=== PATIENT | male | born 1980 | race Caucasian/White ===

== ENCOUNTER 2022-12-24 08:13 | Emergency (ER) | payer BC, SELFPAY ==
[2022-12-24 08:20] VITALS: BP 127/92; PULSE 107; RESP 20; TEMP 36.8; O2SAT 100
--- NOTE | 2022-12-24 08:28 | ED.URI ---
HPI - URI/Sore Throat General Chief Complaint: Upper Respiratory Infection Stated Complaint: Sinus Congestion/Ear Pain/Sore Throat Source: patient and RN notes reviewed History of Present Illness HPI Narrative: 42-year-old male presents to urgent care with complaints of a sore throat, congestion, bilateral neck pain, and bilateral ear pain. Patient states he has been having these symptoms since last . Patient states he thought his symptoms were getting better yesterday but then woke up this morning with worsening symptoms. Patient states he is unable to eat or drink anything with ease due to the feeling his throat is swollen. Pt states every time he lies down, it feels like his throat constricts and closes up. Denies any fever, chills, SOB, chest pain, or vomiting. Pt has taken Aleve and allergy medicine at home. Related Data Home Medications Medication Instructions Recorded Confirmed adalimumab 40 mg/0.8 mL 40 mg subcut ONCE 12/24/22 12/24/22 subcutaneous syringe kit (Humira) sertraline 50 mg tablet 5 mg PO DAILY 12/24/22 12/24/22 Allergies Allergy/AdvReac Type Severity Reaction Status Date / Time No Known Allergies Allergy Unknown Verified 12/24/22 08:32 Review of Systems Review of Systems: Pertinent positives and pertinent negatives per HPI. PMFSH Comments At the time of my signature, I reviewed and agree with the nursing past medical, surgical, social, and family history. There is no relevant family history pertinent to the patient complaint. Exam Narrative: GENERAL: This is a well-nourished, well-developed patient, in no apparent distress. HEAD: normocephalic, atraumatic. EYES: Sclera clear/white. Vision is grossly intact. EARS: External ears normal, auditory canals clear and without drainage, TMs normal without perforation. Hearing grossly intact. NOSE: External nose normal with no obvious nasal discharge, nares without redness, no rhinorrhea. THROAT: Mucous membranes moist, posterior pharynx noted to have white lesion to right side. Left tonsil noted to be 3+. NECK: Neck supple, non-tender without lymphadenopathy, masses or thyromegaly. CARDIOVASCULAR: Regular rate and rhythm without murmurs, gallops, or rubs. RESPIRATORY: Clear to auscultation. Breath sounds equal bilaterally. No wheezes, rales, or rhonchi. SKIN: warm, intact with no suspicious lesions or rash, good texture and turgor. NEURO: awake, alert, and oriented to person, place and time. There were no obvious focal neurologic abnormalities. EXTREMITIES: No clubbing, cyanosis, or edema. No joint tenderness, effusion, or edema noted. Course Course Level of Care: Express Care Visit Vital Signs Vital signs: Vital Signs Temperature 98.3 F 12/24/22 08:20 Pulse Rate 107 H 12/24/22 08:20 Respiratory Rate 20 12/24/22 08:20 Blood Pressure 127/92 H 12/24/22 08:20 Pulse Oximetry 100 12/24/22 08:20 Oxygen Delivery Room Air 12/24/22 08:20 Temperature 98.3 F 12/24/22 08:20 Pulse Rate 107 H 12/24/22 08:20 Respiratory Rate 20 12/24/22 08:20 Blood Pressure 127/92 H 12/24/22 08:20 Pulse Oximetry 100 12/24/22 08:20 Oxygen Delivery Room Air 12/24/22 08:20 Reviewed MDM - URI/Sore Throat MDM Narrative Medical decision making narrative: Due to pt's dysphagia and swelling to left tonsil, suspicious for peritonsillar abscess, pt is being transferred to ED for further evaluation. Pt agrees to plan of care and is able to drive himself now. No trismus, drooling. Pt is stable. VSS. NAD. Report given to Christy charge machine operator, who accepts pt for Dr. De La Cruz at [facility] ED. PT was instructed to stay NPO until further evaluated. Differential Diagnosis Differential diagnosis: Likely upper respiratory infection, viral infection and other (peritonsillar abscess) Lab Data Attestation: I reviewed the patient's lab results. Labs: Strep Screen Presumptive Negative
== END 2022-12-24 08:48 | disposition short-term general hospital (02) ==
PROVIDERS: Emergency Provider Nurse Practitioner Family
DX: J02.9 Acute pharyngitis, unspecified (principal); R13.10 Dysphagia, unspecified; L40.50 Arthropathic psoriasis, unspecified; M06.9 Rheumatoid arthritis, unspecified; F41.9 Anxiety disorder, unspecified; F32.A Depression, unspecified; F43.10 Post-traumatic stress disorder, unspecified
CPT/HCPCS: 87081; 87880; 99203; G0463

== ENCOUNTER 2025-01-20 08:15 | Emergency (ER) | payer OTHER, SELFPAY ==
--- OUTSIDE RECORDS SUMMARY | 2025-01-20 08:19 | XMS_ITS | Clinical Summary ---
Author Organization [facility] Address [address] [place] [address] Phone Care Team Providers Care Floor Winder Name Role Phone Unavailable Primary Care Provider Unavailabl e Allergies No known active allergies Medications HYDROcodone-zahraa taminophen (NORCO) 5-325 MG TabletIndicatio ns:Laceration of left index finger Take 1 Tablet by mouth every 8 hours as needed for Moderate or more severe pain. 10 Tablet 2 Active Additional Information Patient not taking.Reported on 08/30/2021 methotrexate 2.5 MG Tablet TAKE FOUR TABLETS BY MOUTH EVERY WEEK 1 Active Etanercept 50 MG/ML Solution Auto-injector by Subcutaneous route. Active busPIRone (BUSPAR) 10 MG Tablet Take 1 Tablet by mouth 3 times daily. 270 Tablet 2 Active sertraline (ZOLOFT) 50 MG Tablet TAKE 1 TABLET BY MOUTH EVERY DAY 90 Tablet 1 2 Active Active Problems No known active problems Immunizations Immunization Administration Dates Next Due Influenza Vaccine,unspecified Formulation 2004 Pneumococcal Vaccine - 13 Valent 10/12/2018 TDAP Vaccine 08/19/2021 Tetanus Toxoid, Unspecified Formulation 06/30/19 00 Social History Tobacco Use Types Packs/Day Years Used Date Smoking Tobacco: Some Days Smokeless Tobacco: Never Tobacco Cessation:Ready to Q uit: No; Counseling Given: No Sex and Gender Information Value Date Recorded Sex Assigned at Not on file Legal Sex Male 12:23 PM TELEGRAPH OFFICE ROUTE AIDE Gender Identity Not on file Sexual Orientation Not on file Last Filed Vital Signs Vital Sign Reading Time Taken Comments Blood Pressure 134/82 08/30/2021 9:23 AM TELEGRAPH OFFICE ROUTE AIDE Pulse 87 08/30/2021 9:23 AM TELEGRAPH OFFICE ROUTE AIDE Temperature 36.5 C (97.7 F) 08/30/2021 9:23 AM TELEGRAPH OFFICE ROUTE AIDE Respiratory Rate 20 08/30/2021 9:23 AM TELEGRAPH OFFICE ROUTE AIDE Oxygen Saturation 98% 08/30/2021 9:23 AM TELEGRAPH OFFICE ROUTE AIDE Inhaled Oxygen Concentration - - Weight 101.2 kg (223 lb) 08/30/2021 9:23 AM TELEGRAPH OFFICE ROUTE AIDE Height 177.8 cm (5' 10) 08/30/2021 9:23 AM TELEGRAPH OFFICE ROUTE AIDE Body Mass Index 32 08/30/2021 9:23 AM TELEGRAPH OFFICE ROUTE AIDE Plan of Treatment Health Maintenance Due Date Last Done Comments Hepatitis C Virus (HCV) Screening 1980 SARS-COV-2 Immunization (#1) 02/28/1985 Human Papillomavirus (HPV) Immunization (1 - Male 3-dose series) 02/28/1995 Hepatitis B Immunization (1 of 3 - 19+ 3-dose series) 02/28/1999 Influenza Immunization (#1) 2025 05/09/2005 Respiratory Syncytial Virus (RSV) Immunization (Adult) (1 - 1-dose 75+ series) 02/28/2055 Pneumococcal Immunization Combined Aged Out 2018 No longer eligible based on patient's age to complete this topic DTaP/Tdap/Td Immunization Discontinued 08/19/2021 Meningococcal Immunization (ACWY) Aged Out No longer eligible based on patient's age to complete this topic Rotavirus Immunization Aged Out No lo nger eligible based on patient's age to complete this topic Insurance [facility] SAVERS
--- OUTSIDE RECORDS SUMMARY | 2025-01-20 08:19 | XMS_ITS | Encounter Summary ---
Author Organization [facility] Address [address] [place] [address] Phone Care Team Providers Care Fire Management Technician Name Role Phone Steph Andrews APRN, JOHN Primary Care Provider Reason for Visit * Reason Comments Medication Refill Encounter Details Date Type Department Care Team (Late st Contact Info) Description [facility]20[facility] - Mary [address] [place] [address] Steph Andrews APRN, ORNAMENTAL IRONWORKING SUPERVISOR [address] [place] [address] Medication Refill Social History Tobacco Use Types Packs/Day Years Used Date Smoking Tobacco: Some Days Smokeless Tobacco: Never Sex and Gender Information Value Date Recorded Sex Assigned at Not on file Legal Sex Male 12:23 PM KITCHEN STEWARDESS Gender Identity Not on file Sexual Orientation Not on file documented as of this encounter Miscellaneous Notes * Telephone Encounter - Svetlana Mcnamara RN - 04/09/2022 7:40 AM CDT Medication failed the protocol, provider to review and approve the medication order if appropriate. Requested Prescriptions Pending Prescriptions Disp Refills sertraline (ZOLOFT) 50 MG Tablet [Pharmacy Med Name: SERTRALINE 50MG TABLETS] 90 Tablet 1 Sig: TAKE 1 TABLET BY MOUTH EVERY DAY SSRI (6 Month Refill Only) Protocol Failed - 04/08/2022 5:00 PM Failed - Visit with relevant provider in past 6 months or upcoming 90 days Recent Visits No visits were found meeting these conditions. Showing recent visits within past 182 days and meeting all other requirements Future Appointments No visits were found meeting these conditions. Showing future appointments within next 90 days and meeting all other requirements Failed - Has an encounter in the past 6 months with a depression, anxiety, adjustment disorder, OCD, or PTSD visit diagnosis Passed - Patient has established therapy with SSRI for at least 6 months documented in this encounter Plan of Treatment Not on file documented as of this encounter Visit Diagnoses Not on filedocumented in this encounter Care Teams Fire Management Technician Relationship Specialty Start Date End Date Steph Andrews, ARCHEOLOGIST CLASSICAL, ORNAMENTAL IRONWORKING SUPERVISOR [address] [place] [address] PCP - General Advanced Practice Nurse 08/30/21 documented as of this encounter
--- OUTSIDE RECORDS SUMMARY | 2025-01-20 08:19 | XMS_ITS | Clinical Summary ---
Author Organization [facility] Address [address] [place] [address] Care Team Providers Care Water Filterer Name Role Phone None, Provider MD Primary Care Provider Unavaila ble Allergies No known active allergies Medications metFORMIN (GLUCOPHAGE) 500 MG tablet Take 1 tablet (500 mg total) by mouth 2 (two) times daily with meals. 60 tablet 02/09/2024 Active Social History Tobacco Use Types Packs/Day Years Used Date Smoking Tobacco: Never Assessed Sex and Gender Information Value Date Recorded Sex Assigned at Not on file Legal Sex Male 4:51 PM CDT Gender Identity Not on file Sexual Orientation Not on file Last Filed Vital Signs Vital Sign Reading Time Taken Comments Blood Pressure 146/83 02/09/2024 7:30 PM CDT Pulse 87 02/09/2024 8:12 PM CDT Temperature 36.8 C (98.3 F) 02/09/2024 5:09 PM CDT Respiratory Rate 18 02/09/2024 5:09 PM CDT Oxygen Saturation 100% 02/09/2024 7:30 PM CDT Inhaled Oxygen Concentration - - Weight 102.5 kg (225 lb 15.5 oz) 02/09/2024 5:09 PM CDT Height 175.3 cm (5' 9) 02/09/2024 5:09 PM CDT Body Mass Index 33.37 02/09/2024 5:09 PM CDT Plan of Treatment Health Maintenance Due Date Last Done Comments Annual Physical 02/28/1983 Hepatitis C 02/28/1998 Hepatitis B Vaccines (1 of 3 - 19+ 3-dose series) 02/28/1999 HPV Vaccines (1 - 3-dose SCD M series) 02/28/2007 COVID-19 Vaccine (2023-2 5 season) 2024 DTaP, Tdap and Td Vaccines ( 2 - Td or Tdap) 08/19/2031 08/19/2021, 06/30/1999 Pneumococcal Vaccine: Pediatrics (0 to 5 Years) and At-Risk Patients (6 to 49 Years) Aged Out 10/12/2018 No longer eligible b ased on patient's age to complete this topic Meningococcal B Vaccine Aged Out No l onger eligible based on patient's age to complete this topic Meningococcal Vaccine Aged Out No jessy anna eligible based on patient's age to complete this topic RSV Immunizations Under 20 Months Aged Out No longer eligible b ased on patient's age to complete this topic Insurance [facility] Care Teams Water Filterer Relationship Specialty Start Date End Date None, Provider, PCP - General UNKNOWN PHYSICIAN SPECIALTY 02/09/24
--- OUTSIDE RECORDS SUMMARY | 2025-01-20 08:19 | XMS_ITS | Encounter Summary ---
Author Organization [facility] Address [address] [place] [address] Phone Care Team Providers Care Newspaper Delivery Driver Name Role Phone Steph Andrews APRN, JOHN Primary Care Provider Reason for Visit * Reason Comments Medication Refill Encounter Details Date Type Department Care Team (Late st Contact Info) Description 09/03/2022 [facility] - [address] [place] [id number] Steph Andrews APRN, MAPPER [address] [place] [address] Medication Refill Social History Tobacco Use Types Packs/Day Years Used Date Smoking Tobacco: Some Days Smokeless Tobacco: Never Sex and Gender Information Value Date Recorded Sex Assigned at Not on file Legal Sex Male 12:23 PM 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
--- OUTSIDE RECORDS SUMMARY | 2025-01-20 08:19 | XMS_ITS | Referral Summary ---
Author Organization [facility] Address [address] [place] [address] Care Team Providers Care Geothermal Field Technician Name Role Phone [facility], Randall Valverde Primary Care Pro vider Allergies No known active allergies Medications cyclobenzaprine (FLEXERIL) 10 mg tablet Take 1 tablet (10 mg total) by mouth 3 (three) times a day as needed for muscle spasms 12 tablet 01/03/2022 Active cetirizine (ZyrTEC) 10 mg tablet Take 1 tablet (10 mg total) by mouth daily 30 tablet 12/26/2022 Active adalimumab 40 mg/0.8 mL pen injector kit Inject 0.8 mL (40 mg total) under the skin every 14 (fourteen) days Active famotidine (PEPCID) 40 mg tabletIndicatio ns:Laryngeal spasm Take 1 tablet (40 mg total) by mouth nightly 90 tablet 3 01/06/2023 Active multivit,calc,m in/FA/K1/lycop (ONE-A-DAY MEN'S COMPLETE ORAL) Take by mouth daily Active ketorolac (TORADOL) 10 mg tablet Take 1 tablet (10 mg total) by mouth every 6 (six) hours as needed for pain 20 tablet 06/16/2024 Active cyclobenzaprine (FLEXERIL) 10 mg tablet Take 1 tablet (10 mg total) by mouth 2 (two) times a day as needed for muscle spasms 10 tablet 06/16/2024 Active Active Problems Problem Noted Date Diagnosed Date Laryngeal spasm 01/06/2023 Assessment & Plan (01/06/2023 11:26 AM CDT): 64 ounces of caffeine free and soda free fluid daily Mouth wash gargle and spits after meals and before bedtime Pepcid 40 mg at bedtime for at least 2 months Have Dental evaluation [facility] Laryngopharyngeal reflux discussed and Handout provided Chronic tonsillitis 01/06/2023 Assessment & Plan (01/06/2023 11:20 AM CDT): 64 ounces of caffeine free and soda free fluid daily Mouth wash gargle and spits after meals and before bedtime Pepcid 40 mg at bedtime for at least 2 months Have Dental evaluation [facility] Right tonsillar hemorrhage 01/06/2023 Assessment & Plan (01/06/2023 11:20 AM CDT): 64 ounces of caffeine free and soda free fluid daily Mouth wash gargle and spits after meals and before bedtime Pepcid 40 mg at bedtime for at least 2 months Have Dental evaluation [facility] Neck mass 01/06/2023 Assessment & Plan (01/06/2023 11:26 AM CDT): Excision of deep left supraclavicular neck mass Risks and complications: Anesthesia, bleeding, infection, benign versus malignant pathology, recurrence of lesion, injury to arteries, nerves and veins, scarring and need for further treatment Social History Tobacco Use Types Packs/Day Years Used Date Smoking Tobacco: Former Cigarettes Q uit: 12/23/2022 Smokeless Tobacco: Never Tobacco Cessation:Counseling Given: Not Answered Alcohol Use Standard Drinks/Week Comments Yes 0 (1 standard drink = 0.6 oz pur e alcohol) AUDIT-C Answer Date Recorded Q1: How often do you have a drink containing alc ohol? 2-4 times a month 01/16/2023 Q2: How many drinks containi ng alcohol do you have on a typical day when you are drinking? 5 or 6 01/16/2023 Frequency of Binge Drinking Not on file 12/29 Personal Safety Answer Date Recorded Have you ever been in or are you currently in a harmful physical or emotional relationship or is someone making you feel afraid or unsafe? Denies 06/16/2024 Sex and Gender Information Value Date Recorded Sex Assigned at Not on file Legal Sex Male 9:07 AM RETAIL MERCHANDISER Gender Identity Not on file Sexual Orientation Not on file Last Filed Vital Signs Vital Sign Reading Time Taken Comments Blood Pressure 116/74 06/16/2024 3:45 PM RETAIL MERCHANDISER Pulse 83 06/16/2024 3:45 PM RETAIL MERCHANDISER Temperature 37 C (98.6 F) 06/16/2024 12:51 PM RETAIL MERCHANDISER Respiratory Rate 18 06/16/2024 3:45 PM RETAIL MERCHANDISER Oxygen Saturation 96% 06/16/2024 3:45 PM RETAIL MERCHANDISER Inhaled Oxygen Concentration - - Weight 106.6 kg (235 lb 0.2 oz) 024 12:51 PM RETAIL MERCHANDISER Height 175.3 cm (5' 9) 06/16/2024 12:5 1 PM RETAIL MERCHANDISER Body Mass Index 34.71 06/16/2024 12:51 PM RETAIL MERCHANDISER Plan of Treatment Not on file Insurance [employer] [place] [employer] [place] Care Teams Geothermal Field Technician Relationship Specialty Start Date End Date [facility], Randall Valverde [address] [place] [address] PCP - General Genetics 06/16/24
--- OUTSIDE RECORDS SUMMARY | 2025-01-20 08:19 | XMS_ITS | Clinical Summary ---
Author Organization [facility] Address [address] [place] [address] Care Team Providers Care Customer Care Consultant Name Role Phone [facility], Randall Valverde Primary Care Pro vider Allergies [...] veins, scarring and need for further treatment Surgical History Surgery Date Site/Laterality Comments APPENDECTOMY Medical History Medical History Date Comments Rheumatoid arthritis (HCC) GERD (gastroesophageal reflux disease) Social History Tobacco Use Types Packs/Day Years [...] on file Legal Sex Male 9:07 AM SUPERVISOR COMPOSING ROOM Gender Identity Not on file Sexual Orientation Not on file Obstetrics History Last Filed Vital Signs Vital Sign Reading Time Taken Comments Blood Pressure 116/74 06/16/2024 3:45 PM SUPERVISOR COMPOSING ROOM Pulse 83 06/16/2024 3:45 PM SUPERVISOR COMPOSING ROOM Temperature 37 C (98.6 F) 06/16/2024 12:51 PM SUPERVISOR COMPOSING ROOM Respiratory Rate 18 06/16/2024 3:45 PM SUPERVISOR COMPOSING ROOM Oxygen Saturation 96% 06/16/2024 3:45 PM SUPERVISOR COMPOSING ROOM Inhaled Oxygen Concentration - - Weight 106.6 kg (235 lb 0.2 oz) 024 12:51 PM SUPERVISOR COMPOSING ROOM Height 175.3 cm (5' 9) 06/16/2024 12:5 1 PM SUPERVISOR COMPOSING ROOM Body Mass Index 34.71 06/16/2024 12:51 PM SUPERVISOR COMPOSING ROOM Plan of Treatment Health Maintenance Due Date Last Done Comments Depression Screening 1980 Hepatitis C Screening 1980 Varicella Vaccines (1 of 2 - 13+ 2-dose series) 02/28/1993 Hepatitis B Screening 02/28/1998 Regular Well Visit/Exam 18-64 02/28/1998 HPV Vaccines (1 - 3-dose SCD M series) 02/28/2007 Influenza Vaccine (#1) 2025 05/09/2005 DTaP/Tdap/Td Vaccine (2 - Td or Tdap) 08/19/2031 08/19/2021 Pneumococcal vaccine <65 Aged Out 10/12/2018 No longer eligible based on patient's age to complete this topic Insurance [facility] Care Teams Customer Care Consultant Relationship Specialty Start Date End Date [facility], Randall Valverde [address] [place] [address] PCP - General Genetics 06/16/24
[2025-01-20 08:26] VITALS: BP 128/85; PULSE 80; RESP 18; TEMP 36.8; O2SAT 98
[2025-01-20 10:09] LABS: Hematocrit 43.0 % (42.0-52.0); Hemoglobin 14.5 g/dL (14.0-18.0); Immature Granulocyte Percent A 0.4 % (0-0.5); Lymphocytes Absolute Auto 2.60 K/mm3 (0.9-3.2); Mean Corpuscular HGB Conc 33.7 g/dl (32-36); Mean Corpuscular Hemoglobin 31.6 pg (26-34); Mean Corpuscular Volume 93.7 fl (80-100); Nucleated Red Blood Cells Absolute Auto 0.000 K/mm3 (0.0-0.012); Nucleated Red Blood Cells Perc 0.0 % (0.0-0.2); Platelet Count Result 241 k/mm3 (150-375); Red Blood Count 4.59 M/mm3 (4.6-6.20); White Blood Count 9.6 K/mm3 (4.5-10.0)
[2025-01-20] MEDS: SODIUM CHLORIDE 0.9% IV 1,000 ML 999 ML IV CONT (10:10)
[2025-01-20 10:12] VITALS: BP 111/83; PULSE 70; RESP 18; TEMP 36.7; O2SAT 100
[2025-01-20 10:20] LABS: Alanine Aminotransferase 62 U/L (6-50); Albumin Level 4.3 g/dL (3.5-5.1); Alkaline Phosphatase 117 U/L (38-126); Anion Gap 8 mmol/L (4-12); Aspartate Amino Transferase 37 U/L (17-59); Bilirubin,Total 0.5 mg/dL (0.2-1.3); Blood Urea Nitrogen 17 mg/dL (9-20); Calcium 9.3 mg/dL (8.4-10.2); Carbon Dioxide 25 mmol/L (22-30); Chloride 102 mmol/L (98-107); Estimated CRCL calculation 112 ml/min; Estimated Glomerular Filt Rate > 60; Glucose 371 mg/dL (65-110); Magnesium 1.9 mg/dL (1.6-2.3); Potassium 4.6 mmol/L (3.4-5.0); Sodium 135 mmol/L (137-145); Total Protein 7.6 g/dL (6.3-8.2)
--- NOTE | 2025-01-20 10:20 | ED_ITS ---
HPI - Recheck/Abnormal Lab/Rx General Chief Complaint: Recheck/Abnormal Lab/Rx Stated Complaint: diabetic-hyperglycemia Time Seen by Provider: 01/20/25 09:55 Source: patient Mode of arrival: ambulatory Limitations: no limitations History of Present Illness HPI narrative: This is a 44 year old male that presents to the ER for hyperglycemia. Patient takes insulin. Reports he was recently taken off of his metformin as he is being switched to Jardiance. Reports weakness, blurred vision, fatigue, polyuria, polydipsia which started yesterday. His blood sugars have been in the 300s. Denies fever, abdominal pain, vomiting. Related Data Home Medications ?Medication ?Instructions ?Recorded ?Confirmed ?Last Taken ?Type adalimumab 40 mg/0.8 mL 40 mg subcut ONCE 12/24/22 12/24/22 Unknown History subcutaneous syringe kit (Humira) sertraline 50 mg tablet 5 mg PO DAILY 12/24/22 12/24/22 Unknown History Allergies Allergy/AdvReac Type Severity Reaction Status Date / Time No Known Allergies Allergy Unknown Verified 01/20/25 10:14 Review of Systems 2 Review of Systems: All systems reviewed & are unremarkable except as noted in HPI and below PMFSH Past Medical History Medical History (Updated 01/20/25 @ 12:01 by Lizeth Chanel PA-C) History of psoriatic arthritis History of diabetes mellitus Exam 2 Narrative: GENERAL: Well-appearing, well-nourished, and in no acute distress. HEAD: Normocephalic, atraumatic. EYES: EOMI. ENT: Nares clear, no rhinorrhea or epistaxis. Mucous membranes dry. Oropharynx without tonsillar hypertrophy exudate or other lesions. NECK: Supple. No adenopathy or masses. CHEST: Clear to auscultation. No respiratory distress. No wheezes rales or rhonchi HEART: Regular rate and rhythm. No murmur heard. Normal peripheral pulses. ABDOMEN: Soft, nontender, nondistended, normal active bowel sounds. EXTREMITIES: Normal range of motion. No edema. SKIN: Warm, dry, no rash. NEURO: No focal deficits. Alert and oriented x3. PSYCH: Normal mood and affect Course Vital Signs Vital signs: Vital Signs Temperature 98.3 F 01/20/25 08:26 Pulse Rate 80 01/20/25 08:26 Respiratory Rate 18 01/20/25 08:26 Blood Pressure 128/85 01/20/25 08:26 Pulse Oximetry 98 01/20/25 08:26 Oxygen Delivery Room Air 01/20/25 08:26 Temperature 98.1 F 01/20/25 10:12 Pulse Rate 74 01/20/25 11:29 Respiratory Rate 18 01/20/25 11:29 Blood Pressure 123/82 01/20/25 11:29 Pulse Oximetry 97 01/20/25 11:29 Oxygen Delivery Room Air 01/20/25 08:26 MDM - Recheck/Abnormal Lab/Rx MDM Narrative Medical decision making narrative: Patient presents the emergency department for elevated blood sugar readings. Known history of diabetes. Reports he is currently changing his diabetic regimen. His vitals are stable. CBC metabolic panel without concerning findings. Blood sugar initially elevated in the high 300s. He was hydrated with IV fluids, blood sugars now 264. Urine without ketones. Beta hydroxybutyrate is not elevated. Patient updated on his workup and agrees with plan of care. Instructed to have further follow-up with his PCP. He was given warnings to return to the ER Differential Diagnosis Differential diagnosis: Likely other (High blood sugar, DKA) Lab Data Attestation: I reviewed the patient's lab results. 01/20/25 10:04 01/20/25 10:04 Labs: Lab Results 01/20/25 01/20/25 01/20/25 Range/Units 08:28 10:04 10:09 WBC 9.6 (4.5-10.0) K/mm3 RBC 4.59 L (4.6-6.20) M/mm3 Hgb 14.5 (14.0-18.0) g/dL Hct 43.0 (42.0-52.0) % MCV 93.7 (80-100) fl MCH 31.6 (26-34) pg MCHC 33.7 (32-36) g/dl RDW 12.2 (11.5-14.5) % Plt Count 241 (150-375) k/mm3 MPV 10.4 (7.4-10.4) fl Immature Gran % (Auto) 0.4 (0-0.5) % Neut % (Auto) 60.8 (45.5-73.1) % Lymph % (Auto) 27.1 (18.3-44.2) % [place] % (Auto) 8.4 (2.6-8.5) % Eos % (Auto) 2.5 (0-4.4) % Baso % (Auto) 0.8 (0.2-1.2) % Lymph # (Auto) 2.60 (0.9-3.2) K/mm3 [place] # (Auto) 0.8 H (0.1-0.6) K/mm3 Eos # (Auto) 0.2 (0-0.3) K/mm3 Baso # (Auto) 0.1 (0.0-0.1) K/mm3 Abs Immat Gran (auto) 0.04 H (0.00-0.031) K/mm3 Absolute Neuts (auto) 5.8 (1.3-6.7) K/mm3 Absolute Nucleated RBC 0.000 (0.0-0.012) K/mm3 Nucleated RBC % 0.0 (0.0-0.2) % Sodium 135 L (137-145) mmol/L Potassium 4.6 (3.4-5.0) mmol/L Chloride 102 (98-107) mmol/L Carbon Dioxide 25 (22-30) mmol/L Anion Gap 8 (4-12) mmol/L BUN 17 (9-20) mg/dL Creatinine 0.89 (0.7-1.3) mg/dL Estim Creat Clear Calc 112 ml/min Estimated GFR > 60 (59 - ) Glucose 371 H (65-110) mg/dL POC Capillary Glucose 343 H 374 H (65-105) mg/dl Calcium 9.3 (8.4-10.2) mg/dL Phosphorus 2.8 (2.5-4.5) mg/dL Magnesium 1.9 (1.6-2.3) mg/dL Total Bilirubin 0.5 (0.2-1.3) mg/dL AST 37 (17-59) U/L ALT 62 H (6-50) U/L Alkaline Phosphatase 117 (38-126) U/L Total Protein 7.6 (6.3-8.2) g/dL Albumin 4.3 (3.5-5.1) g/dL Beta-Hydroxybutyrate/Acetoacetate 0.11 (0.02-0.27) mmol/L Urine Color (Yellow) Urine Appearance (Clear) Urine pH (5.0-9.0) Ur Specific [place] (1.001-1.035) Urine Protein (Negative) mg/dL Urine Glucose (UA) (Negative) mg/dL Urine Ketones (Negative) mg/dL Ur Blood (Man) (Negative) Urine Nitrate (Negative) Urine Bilirubin (Negative) Urine Urobilinogen (<2.0) mg/dL Leukocyte Esterase Rfl (Negative) JENNIFER/UL 01/20/25 01/20/25 Range/Units 10:29 11:29 WBC (4.5-10.0) K/mm3 RBC (4.6-6.20) M/mm3 Hgb (14.0-18.0) g/dL Hct (42.0-52.0) % MCV (80-100) fl MCH (26-34) pg MCHC (32-36) g/dl RDW (11.5-14.5) % Plt Count (150-375) k/mm3 MPV (7.4-10.4) fl Immature Gran % (Auto) (0-0.5) % Neut % (Auto) (45.5-73.1) % Lymph % (Auto) (18.3-44.2) % [place] % (Auto) (2.6-8.5) % Eos % (Auto) (0-4.4) % Baso % (Auto) (0.2-1.2) % Lymph # (Auto) (0.9-3.2) K/mm3 [place] # (Auto) (0.1-0.6) K/mm3 Eos # (Auto) (0-0.3) K/mm3 Baso # (Auto) (0.0-0.1) K/mm3 Abs Immat Gran (auto) (0.00-0.031) K/mm3 Absolute Neuts (auto) (1.3-6.7) K/mm3 Absolute Nucleated RBC (0.0-0.012) K/mm3 Nucleated RBC % (0.0-0.2) % Sodium (137-145) mmol/L Potassium (3.4-5.0) mmol/L Chloride (98-107) mmol/L Carbon Dioxide (22-30) mmol/L Anion Gap (4-12) mmol/L BUN (9-20) mg/dL Creatinine (0.7-1.3) mg/dL Estim Creat Clear Calc ml/min Estimated GFR (59 - ) Glucose (65-110) mg/dL POC Capillary Glucose 264 H (65-105) mg/dl Calcium (8.4-10.2) mg/dL Phosphorus (2.5-4.5) mg/dL Magnesium (1.6-2.3) mg/dL Total Bilirubin (0.2-1.3) mg/dL AST (17-59) U/L ALT (6-50) U/L Alkaline Phosphatase (38-126) U/L Total Protein (6.3-8.2) g/dL Albumin (3.5-5.1) g/dL Beta-Hydroxybutyrate/Acetoacetate (0.02-0.27) mmol/L Urine Color Yellow (Yellow) Urine Appearance Clear (Clear) Urine pH 5.5 (5.0-9.0) Ur Specific [place] 1.035 (1.001-1.035) Urine Protein Negative (Negative) mg/dL Urine Glucose (UA) 3+ H (Negative) mg/dL Urine Ketones Negative (Negative) mg/dL Ur Blood (Man) Negative (Negative) Urine Nitrate Negative (Negative) Urine Bilirubin Negative (Negative) Urine Urobilinogen 0.2 (<2.0) mg/dL Leukocyte Esterase Rfl Negative (Negative) JENNIFER/UL Critical Care Time Critical Care Time Critical Care Time: No Discharge Plan Discharge Clinical Impression: Hyperglycemia Patient Disposition: Home Condition: Stable Instructions: Empagliflozin (By mouth), Type 2 Diabetes Management for Adults (ED) Additional Instructions: Return to the ER if you experience fever, abdominal pain with nausea and vomiting, you are unable to keep down liquids or solids, blood in the stool, pain or burning with urination, blood in the urine or any other symptoms that are concerning to you Remain well hydrated. Continue to monitor your blood sugar and take your diabetic agents as prescribed Follow up with your primary care doctor Patient Language: Macedonian Prescriptions: No Action sertraline 50 mg tablet 5 mg PO DAILY Humira 40 mg/0.8 mL Syringe Kit 40 mg SUBCUT ONCE Follow-up/Referrals: PHYSICIAN NOT ON STAFF,NONSTAFF [Non-Staff] -
--- OUTSIDE RECORDS SUMMARY | 2025-01-20 10:27 | XMS_ITS | Encounter Summary ---
Author Organization [facility] Address [address] [place] [address] Phone Care Team Providers Care Balcony Worker Name Role Phone Steph Andrews APRN, JOHN Primary Care Provider Reason for Visit * Reason Comments Medication Refill Encounter Details Date Type Department Care Team (Late st Contact Info) Description [facility] - [place] [address] [place] [id number] Steph Andrews APRN, KINDER TEACHER [address] [place] [address] Medication Refill Social History Tobacco Use Types Packs/Day Years Used Date Smoking Tobacco: Some Days Smokeless Tobacco: Never Sex and Gender Information Value Date Recorded Sex Assigned at Not on file Legal Sex Male 12:23 PM MOVE COORDINATOR Gender Identity Not on file Sexual Orientation Not on file documented as of this encounter Miscellaneous Notes * Telephone Encounter - Jeannine Fortune RN - 09/03/2022 8:13 AM CST Refill too soon COORDINATOR documented in this encounter Plan of Treatment Not on file documented as of this encounter Visit Diagnoses Not on filedocumented in this encounter Care Teams Balcony Worker Relationship Specialty Start Date End Date Steph Andrews APRN, KINDER TEACHER [address] [place] [address] PCP - General Advanced Practice Nurse 08/30/21 documented as of this encounter
--- OUTSIDE RECORDS SUMMARY | 2025-01-20 10:27 | XMS_ITS | Clinical Summary ---
Author Organization [facility] Address [address] [place] [address] Phone Care Team Providers Care Quartz Miner Name Role Phone Unavailable Primary Care Provider [...] on file Legal Sex Male 12:23 PM RADIO STATION AUDIO ENGINEER Gender Identity Not on file Sexual Orientation Not on file Last Filed Vital Signs Vital Sign Reading Time Taken Comments Blood Pressure 134/82 08/30/2021 9:23 AM RADIO STATION AUDIO ENGINEER Pulse 87 08/30/2021 9:23 AM RADIO STATION AUDIO ENGINEER Temperature 36.5 C (97.7 F) 08/30/2021 9:23 AM RADIO STATION AUDIO ENGINEER Respiratory Rate 20 08/30/2021 9:23 AM RADIO STATION AUDIO ENGINEER Oxygen Saturation 98% 08/30/2021 9:23 AM RADIO STATION AUDIO ENGINEER Inhaled Oxygen Concentration - - Weight 101.2 kg (223 lb) 08/30/2021 9:23 AM RADIO STATION AUDIO ENGINEER Height 177.8 cm (5' 10) 08/30/2021 9:23 AM RADIO STATION AUDIO ENGINEER Body Mass Index 32 08/30/2021 9:23 AM RADIO STATION AUDIO ENGINEER Plan of Treatment Health Maintenance Due Date [...] patient's age to complete this topic Insurance [facility] [place] [address]
--- OUTSIDE RECORDS SUMMARY | 2025-01-20 10:27 | XMS_ITS | Encounter Summary ---
Author Organization [facility] Address [address] [place] [address] Phone Care Team Providers Care Distributor Sales Consultant Name Role Phone Steph Andrews APRN, JOHN Primary Care Provider Reason for Visit * Reason Comments Medication Refill Encounter Details Date Type Department Care Team (Late st Contact Info) Description 04/[facility]/[address] - [place] [address] [place] [address] Steph Andrews APRN, PHARMACEUTICAL SALES [address] [place] [address] Medication Refill Social History Tobacco Use Types Packs/Day Years Used Date Smoking Tobacco: Some Days Smokeless Tobacco: Never Sex and Gender Information Value Date Recorded Sex Assigned at Not on file Legal Sex Male 12:23 PM DIRECTOR CAREER Gender Identity Not on file Sexual Orientation [...] on filedocumented in this encounter Care Teams Distributor Sales Consultant Relationship Specialty Start Date End Date Steph Andrews, MOTOR MECHANIC, PHARMACEUTICAL SALES [address] [place] [address] PCP - General Advanced Practice Nurse 08/30/21 documented as of this encounter
--- OUTSIDE RECORDS SUMMARY | 2025-01-20 10:27 | XMS_ITS | Encounter Summary ---
Author Name [facility] [place] [facility] [place] Address [address] [place] [address] Support Name Relationship Address Phone FIONA KYLE Next of Kin [id number] [place] [address] ISREAL KYLEILA Emergency Contact [id number] [place] [address] Insurance Providers: All historical and current Section Date Range: From patient's date of to the date document was created. This section includes the names of all active insurance providers for the patient. Insurance Provider Type of Coverage Plan Name Start of Policy Coverage End of Policy Coverage Group Number Member ID Insurance Provider's Telephone Number Policy Li's Name Patient's Relationship to Policy Li [facility], October 28, 2017 [id number] T[address] LUTZ PATIENT Selected Encounter This section includes the information on record at [place] for the Encounter. Date/Time Encounter Type Encounter Description Reason Provider Source Dec 10, 2024 11:00 AM OFFICE O/P EST MOD 30 MIN RHEUMATOLOGY/ARTH RITIS ICD-10-CM L40.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 DIFFIE,MAC E IHE Encounter Template Text not used by [place] Assessments - Encounter Diagnoses This section includes the primary and secondary diagnoses documented for the Encounter. Date/Time Primary/Secondary Diagnosis Diagnosis Name Provider Source Dec 10, 2024 12:15 PM PRIMARY Other psoriatic arthropathy DIFFIE,MAC E [facility] Dec 10, 2024 12:15 PM SECONDARY Psoriasis, unspecified DIFFIE,MAC E [facility] Plan of Treatment: Future Appointments (+ 6 months) and Future Tests (+/- 45 days) The Plan of Treatment section includes future care activities for the patient from all [place] [facility]. This section includes future appointments and future orders which are active, pending or scheduled. Future Appointments This section includes appointments that were scheduled to occur 6 months from the date of the Encounter, up to a maximum of 20 appointments. The data comes from all [facility]. Appointment Date/Time Appointment Type Appointme nt Facility Name Jan 13, 2025 11:00 AM AMBULATORY - MEDICINE [facility] Feb 17, 2025 02:[address] [facility] Jun 10, 2025 11:00 AM [facility] Active, Pending, and Scheduled Orders This section includes a listing of several types of active, pending, and scheduled orders, including clinic medications orders, diagnostic test orders, procedure orders and consult orders; where the start date of the order is 45 days before the date of the Encounter or 45 days after the date of theEncounter. The data comes from all [facility]. Test Date/Time Test Type Test Details Facility Name Jan 13, 2025 11:44 AM Consult Order DIABETES C ENTER OUTPT STL Cons Battery Checker's Choice [facility] Lab Results: +/- 30 days of the encounter This section includes the Chemistry and Hematology Lab Results on record with [place] for the patient. Radiology Reports and Pathology Reports are provided separately, in subsequent sections. Lab Results This section contains the Chemistry/Hematology Results that were resulted 30 days before or 30 daysafter the date of the Encounter. Date/Time Source Result Type Result - Unit Interpretation Reference Range Specimen Type Comment Dec 10, 2024 11:[address] [facility] QUANTIFERON-TB,4 TUBE BLOOD Specimen Type: BLOOD Comment: Negative test result. M. tuberculosis complex infection unlikely. The Nil tube value reflects the background interferon gamma immune response of the patient's blood sample. This value has been subtracted from the patient's displayed TB and Mitogen results. Lower than expected results with the Mitogen tube prevent false-negative Quantiferon readings by detect- ing a patient with a potential immune suppressive condition and/or suboptimal pre-analytical specimen handling. The TB1 Antigen tube is coated with the M. tuberculosis-spe cific antigens designed to elicit responses from TB antigen primed CD4+ helper T-lymphocytes. The TB2 Antigen tube is coated with the M. tuberculosis-spe cific antigens designed to elicit responses from TB antigen primed CD4+ helper and CD8+ cytotoxic T-lymphocytes. For additional information, please refer to http://education [email or web address]/faq/VUO209 (This link is being provided for information/ educational purposes only.) Test Performed by [facility], [facility], [address] [place] [address] Singh Hart M.D., Ph.D., Director of Laboratories , [place] [id number] Ordering Provider: MAC SALAZAR Report Released Date/Time: Dec 10, 2024 11:37 AM Reporting Lab: [facility] [address] [place] [phone] Performing Lab: [address] .NIL - QUANTIFERON 0.01 [IU]/mL .MITOGEN-NIL 9.72 [IU]/mL .QUANTIFERON NEGATIVE NEGATIVE .TB1-NIL 0.01 [IU]/mL .TB2-NIL 0.01 [IU]/mL Dec 10, 2024 11:[address] [facility] CRP PLASMA Specimen Type: PLASM A Comment: No hemolysis noted. Ordering Provider: MAC SALAZAR Report Released Date/Time: Dec 10, 2024 11:37 AM Reporting Lab: [facility] [address] [facility] [phone] Performing Lab: [facility] [address] [place] [phone] CRP 0.5 mg/dL 0-0.5 Dec 10, 2024 11:[address] [facility] ESR ISED(STL) BLOOD Specimen Type: BLOOD No comment entered. Ordering Provider: MAC SALAZAR Report Released Date/Time: Dec 10, 2024 11:37 AM Reporting Lab: [facility] [address] [place] [phone] Performing Lab: [address] [phone] ESR ISED(STL) 17 mm/h H 0-14 Dec 10, 2024 11:[address] [facility] COMPREHENSIVE METABOLIC PANEL PLASMA Specimen Type: PLASMA Comment: No hemolysis noted. Ordering Provider: MAC SALAZAR Report Released Date/Time: Dec 10, 2024 11:37 AM Reporting Lab: [address] [phone] Performing Lab: [address] [phone] CREATININE 0.87 mg/dL 0.7-1.3 UREA NITROGEN 14.5 mg/dL 9.0-25.0 GLUCOSE 324 mg/dL H 72-99 SODIUM 134 meq/L L 136-145 POTASSIUM 4.1 meq/L 3.5-5 CHLORIDE 103 meq/L 98-107 CARBON DIOXIDE 23 meq/L 22-31 CALCIUM 9.6 mg/dL 8.4-10.4 PROTEIN 7.7 g/dL 6-8.6 ALBUMIN 4.4 g/dL 3.4-5 TOTAL BILIRUBIN 0.4 mg/dL 0.2-1.2 ALKALINE PHOSPHATASE 138 U/L 40-150 AST/SGOT 39 U/L H 5-34 ALT/SGPT 85 U/L H 8-40 EGFR (CKD-EPI 2020) 109.1 >60 Dec 10, 2024 11:[address] [facility] CBC BLOOD Specimen Type: BLOOD No comment entered. Ordering Provider: MAC SALAZAR Report Released Date/Time: Dec 10, 2024 11:37 AM Reporting Lab: [address] [phone] Performing Lab: [address] [phone] WBC 9.8 10*3/uL 3.6-11.2 RBC 4.65 10*6/uL 4.10-5.70 HGB 14.5 g/dL 13.1-16.8 HCT 42.5 38.2-48.4 MCV 91.4 fL 80.0-100.0 MCH 31.2 pg 27.0-34.0 MCHC 34.1 g/dL 33.0-36.0 PLT 280 10*3/uL 150-400 MPV 10.8 fL 7.5-11.2 RDW 11.9 11.8-15.1 LYMPHOCYTES, AUTO % 33 MONOCYTES, AUTO % 9 NEUTROPHILS, AUTO % 54 EOSINOPHILS, AUTO % 2 BASOPHILS, AUTO % 1 LYMPHOCYTES, ABSOLUTE 3.23 10*3/uL 0.77- 4.50 MONOCYTES, ABSOLUTE 0.92 10*3/uL H 0.19-0. 80 NEUTROPHILS, ABSOLUTE 5.32 10*3/uL 2.10- 8.00 EOSINOPHILS, ABSOLUTE 0.24 10*3/uL 0.00- 0.60 BASOPHILS, ABSOLUTE 0.08 10*3/uL 0.00-0. 20 Vital Signs: All taken on the encounter date This section contains inpatient and outpatient Vital Signs collected on the date of the Encounter. Date/Time Temperature Pulse Blood Pressure Respiratory Rate SP02 Pain Height Weight Body Mass Index Source Dec 10, 2024 11:10 AM 97.7 85 116/75 20 97 4 69 230.7 34 [facility] Social History: Smoking Status (Most current) and Tobacco Use (All prior to encounter date) This section includes the most current, and the historical, smoking and tobacco- related health factors from the [place] facility where the Encounter took place. Current Smoking Status This section includes the most current smoking, or tobacco-related health factor, from the [place] facility where the Encounter took place. Date/Time Current Smoking Status Comment Shavonne ity Apr 06, 2024 11:30 AM VA-TOBACCO USER SOME DAYS [facility] Tobacco Use History This section includes a history of the smoking, or tobacco-related health factors, that were collected on or before the date of the Encounter. The data comes from the [place] facility where the Encounter took place. Date/Time Smoking Status/Tobacco Use Comment F acility Apr 06, 2024 11:30 AM VA-TOBACCO USE ADVICE [facility] Apr 06, 2024 11:30 AM VA-TOBACCO USE MANAGER VALIDATION NO [facility] Apr 06, 2024 11:30 AM VA-TOBACCO USE MED NO [facility] Apr 06, 2024 11:30 AM VA-TOBACCO USE WI [address] [facility] Apr 06, 2024 11:30 AM VA-TOBACCO USER SOME DAYS [facility] Mar 22, 2024 05:05 PM ORYX ADMIT TOBACCO SCREEN NO [facility] Mar 05, 2018 01:[address] USER [facility] Mar 05, 2018 01:14 PM CURRENT TOBACCO US ER (READY TO QUIT) [facility] Mar 05, 2018 01:14 PM TOBACCO CESSATION REFERRAL DECLINED [facility] Mar 05, 2018 01:14 PM TOBACCO MEDS OFFER ED BUT DECLINED [facility] Mar 05, 2018 01:14 PM TOBACCO USER OFFERED MEDS [facility] Jul 31, 2016 10:56 [address] [facility] Jul 31, 2016 10:56 AM TOBACCO MEDS OFFER ED BUT DECLINED [facility] Encounter Notes: All associated encounter notes This section contains the clinical notes associated to the Encounter. Date/Time Encounter Note(s) Provider Source Dec 17, 2024 04:41 PM PHYSICIAN LETTERS: LOCAL TITLE: TEST RESULT RHEUM LETTER [facility] STANDARD TITLE: PHYSICIAN LETTERS DATE OF NOTE: DEC 17, 2024@16:41 ENTRY DATE: DEC 17, 2024@16:41:04 AUTHOR: MAC SALAZAR EXP COSIGNER: URGENCY: STATUS: COMPLETED [address] [address] DEC 17, 2024 HUMPHREY LUTZ [address] [place] [id number] Dear Mr. Humphrey Lutz, I would like to update you on your recent test results. The results of your blood counts and chemistries are: LABS Complete Blood Count: WBC 9.8 10*3/uL 12/10/2024 11:50 RBC 4.65 10*6/uL 12/10/2024 11:50 HGB 14.5 g/dL 12/10/2024 11:50 HCT 42.5 % 12/10/2024 11:50 MCV 91.4 fL 12/10/2024 11:50 MCH 31.2 pg 12/10/2024 11:50 MCHC 34.1 g/dL 12/10/2024 11:50 RDW 11.9 % 12/10/2024 11:50 PLT 280 10*3/uL 12/10/2024 11:50 MPV 10.8 fL 12/10/2024 11:50 NEUTROPHILS, AUTO % 54 % 12/10/2024 11:50 LYMPHOCYTES, AUTO % 33 % 12/10/2024 11:50 MONOCYTES, AUTO % 9 % 12/10/2024 11:50 EOSINOPHILS, AUTO % 2 % 12/10/2024 11:50 BASOPHILS, AUTO % 1 % 12/10/2024 11:50 NEUTROPHILS, ABSOLUTE 5.32 10*3/uL 12/10/2024 11:50 LYMPHOCYTES, ABSOLUTE 3.23 10*3/uL 12/10/2024 11:50 MONOCYTES, ABSOLUTE 0.92 H 10*3/uL 12/10/2024 11:50 EOSINOPHILS, ABSOLUTE 0.24 10*3/uL 12/10/2024 11:50 BASOPHILS, ABSOLUTE 0.08 10*3/uL 12/10/2024 11:50 Comprehensive Metabolic Panel: SODIUM 134 L mEq/L 12/10/2024 11:50 POTASSIUM 4.1 mEq/L 12/10/2024 11:50 CHLORIDE 103 mEq/L 12/10/2024 11:50 UREA NITROGEN 14.5 mg/dL 12/10/2024 11:50 CREATININE 0.87 mg/dL 12/10/2024 11:50 CALCIUM 9.6 mg/dL 12/10/2024 11:50 PROTEIN 7.7 g/dL 12/10/2024 11:50 ALBUMIN 4.4 g/dL 12/10/2024 11:50 ALKALINE PHOSPHATASE 138 U/L 12/10/2024 11:50 ALT/SGPT 85 H U/L 12/10/2024 11:50 AST/SGOT 39 H U/L 12/10/2024 11:50 TOTAL BILIRUBIN 0.4 mg/dL 12/10/2024 11:50 CARBON DIOXIDE 23 mEq/L 12/10/2024 11:50 GLUCOSE 324 H mg/dL 12/10/2024 11:50 EGFR (CKD-EPI 2020) 109.1 12/10/2024 11:50 PLAN: The results of your testing to get the higher frequency of your shot all came back okay. However, there were some metabolic issues that were identified - your liver numbers were higher, and your blood sugar was fairly high at 324. I would recommend following up with your primary care doctor about these changes. Sincerely, Mac Salazar MD Chief of Rheumatology HUMPHREY LUTZ [facility] Dec 10, 2024 11:10 AM RHEUMATOLOGY OUTPA TIE NOTE: LOCAL TITLE: RHEUMATOLOGY OUTPATIENT FOLLOW UP [facility] STANDARD TITLE: RHEUMATOLOGY OUTPATIENT NOTE DATE OF NOTE: DEC 10, 2024@11:10 ENTRY DATE: DEC 10, 2024@11:10:56 AUTHOR: MAC SALAZAR EXP COSIGNER: URGENCY: STATUS: COMPLETED Rheumatology Clinic Note Visit Type: Return Office Visit HUMPHREY LUTZ is a 44 year old MALE who returns for follow up of PsO/PsA Disease History: (Per Dr. Adams's documentation, corroborated with patient). Patient has long standing history of psoriatic arthritis that has not been fully controlled despite multiple medication regimens. As taken from Dr. Adams's note (08/01/22): Medication history: Infliximab: worked well but patient unable to come in for infusions Etanercept: ineffective for psoriasis Golimumab: ineffective for psoriasis Golimumab plus apremilast: ineffective for psoriasis Golimumab plus SSZ: ineffective for psoriasis Ustekinumab: ineffective for arthritis but controlled psoriasis Secukinumab: helped psoriasis and partially effective for arthritis Secukinumab plus MTX: arthritis improved but not sufficiently and there was radiographic progression Etanercept plus MTX and apremilast: partially effective for arthritis, ineffective for psoriasis Certolizumab plus MTX: arthritis well controlled, ineffective for psoriasis Certolizumab plus leflunomide: arthritis well controlled, ineffective for psoriasis Abatacept plus leflunomide: arthritis slightly controlled, psoriasis a little improved. 07/24 - Since last visit, patient reports doing well on his current regimen. He reports his arthritis symptoms are well controlled on the adalimumab with only some residual stiffness in his hands that resolves during the day. He reports pain in his lower back and cervical neck that is present throughout the day with some mild stiffness in the neck. The stiffness resolves during the morning whereas the pain is usually worsened after work and radaites down his bilateral arms. He also reports associated numbness and pin prick sensation in his first two fingers bilaterally. Regarding his psoriasis, he reports is still present but currently much more tolerable than before. The psoriasis is present on his bilateral dorsal hands, elbows, and knees with the knees being the most severe. He reports occasional bleeding from the plaques after they rub on his clothes. 12/23 - Mr. Lutz has remained on Hadlima for the past two years and has started to experience increasing breakthrough with his skin. He notes that he has had generally well controlled arthritis while on most of his biologics, but his skin disease tends to break through eventually. We discussed options and wanted to switch to a higher frequency of his adalimumab at qWeek vs switch to another drug. He has tried oral DMARDs and hasnt really had any success with them, vs adding an oral agent. Will also send in a higher potency topical steroid than clobetasol previously used. No real breakthrough in his arthritis. Heh as been diagnosed with diabetes and has gained weight, has had diarrhea since starting metformin. Review Of Systems negative except for HPI I have reviewed the patient's medical problems listed in CPRS I have reviewed the patient's medications listed listed in CPRS BP: P: R: WT: T: HT: Physical Exam: General: Alert, Cooperative, NAD, HEENT: EOMI, normal sclera, Lungs: breathing normally, no audible wheezes, no respiratory distress Cardiovascular: Radial pulses palpable and equal Neurological: Moves all extremities independently, no facial droop or neurological deficits appreciated Skin: Multiple psoriaform patches, especially bilateral knees. No rashes, lesions or ulcerations on exposed skin. Musculoskeletal: PIPs, DIPs, MCPs, wrists, elbows, shoulders, knees, and ankles were examined and were normal except those listed below. -Swelling: None -Tenderness: None -Deformity: Prominent L ulnar styloid, but no obvious deformity otherwise Data Review: I have reviewed notes, test results and imaging newly available since last visit. Assessment and Plan: #Psoriatic Arthritis - arthritis currently well controlled but flaring psoriasis - increase frequency of adalimumab from q2 weeks to qWeekly #Use of high-risk, immunosuppressive medications -CBC, CMP, ESR, CRP q 3 months to monitor for medication toxicities and disease activity. -Patient aware that they should hold immunosuppressive medications if they develop a serious infection. #Immunizations Pt is at high risk for complications from infections because of his immunosuppressed status. Patient is aware of the afore mentioned risks but prefers to defer vaccinations. Return to Clinic in 6 months On the date of the encounter, I spent 30 minutes on some or all of the following: chart review, history, physical examination, treatment planning, education and counseling of the patient/family/pet care worker, placing orders, communicating with other health care providers, and documentation in the electronic health record. /es/ Mac Salazar MD Chief of Rheumatology Signed: 12/10/2024 12:15 MAC SALAZAR [facility]
[2025-01-20 10:28] LABS: Beta-Hydroxybutyrate/Acetoacetate 0.11 mmol/L (0.02-0.27)
--- OUTSIDE RECORDS SUMMARY | 2025-01-20 10:28 | XMS_ITS | Clinical Summary ---
Author Organization [facility] Address [address] [place] [address] Care Team Providers Care Research Assistant Professor Name Role Phone None, Provider MD Primary [...] patient's age to complete this topic Insurance [facility] Care Teams Research Assistant Professor Relationship Specialty Start Date End Date None, Provider, PCP - General UNKNOWN PHYSICIAN SPECIALTY 02/09/24
--- OUTSIDE RECORDS SUMMARY | 2025-01-20 10:28 | XMS_ITS | Continuity of Care Document ---
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 It does not include entries that were removed or entered in error. Problem Status Onset Date Problem Type Date of Resolution Comments Source Adjustment reaction with anxious mood Active Condition [facility] Allergic rhinitis * (ICD-9-CM 477.9) Active Condition [facility] Ankylosing Spondylitis * (ICD-9-CM 720.0) Active Condition [facility] Arthritis, Rheumatoid * (ICD-9-CM 714.0) [facility] Arthritis, Rheumatoid * (ICD-9-CM 714.0) Active Condition Jun 09 7 Entered By: YOAN MORGAN Comment: diagnosed in 2006 Entered By: YOAN MORGAN Comment: lower back, hip and down right leg.Jun 09, 2007 Entered By: YOAN MORGAN Comment: Had positive HBLA 127 [facility] Conjunctivitis * (ICD-9-CM 372.30) Active Condition [facility] Diabetes Mellitus Type 2 ([facility] 15140345) Active Condition [facility] Elevated levels of transaminase and lactic acid dehydrogenase Active Condition [facility] Exposure to potentially hazardous substance ([facility] [id number]) Active Condition Apr 07 4 Entered By: LISSETH SPANGLER Comment: Entered automatically through BERTRAM Problem List documentation program [facility] Family History of Diabetes Mellitus Active Condition [facility] Irritable Colon Active Condition [facility] Needs influenza immunization Active Condition May 09, 2005 Entered By: MADONNA SALINAS Comment: Lot# [id number] (exp 12/27/05) [facility] Pain in joint involving shoulder region Active Condition [facility] PsA (Psoriatic arthritis) (SNOMED CT 423229681) Active Condition [facility] Psoriasis Active Condition [facility] Psoriasis (SNOMED CT 9027599) Active Condition [facility] Psoriatic arthritis Active Condition [facility] Vitamin D deficiency Active Condition [facility] Diagnosis: ICD-10-CM R73.9 Hyperglycemia, unspecified Active Diagnosis [facility] Diagnosis: ICD-10-CM Z02.9 Encounter for administrative examinations, unspecified Active Diagnosis [facility] Diagnosis: ICD-10-CM 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 [facility] Diagnosis: ICD-10-CM L40.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 Active Diagnosis [facility] Diagnosis: ICD-10-CM E11.9 Type 2 diabetes mellitus without complications Active Diagnosis [facility] Diagnosis: ICD-10-CM H52.4 Presbyopia Active Diagnosis [facility] Diagnosis: ICD-10-CM G47.33 Obstructive sleep apnea (adult) (pediatric) Active Diagnosis [facility] Diagnosis: ICD-10-CM Z13.5 Encounter for screening for eye and ear disorders Active Diagnosis [facility] Diagnosis: ICD-10-CM Z71.81 Spiritual or temple counseling Active Diagnosis [facility] Admit Reason: HYPERGLYCEMIA Active Diagnosis [facility] Medications Combined list of outpatient medications from Department of [facility] and [facility] facilities.Medications provided include 1) outpatient medications from the last 15 months, and 2) patient-reported medications. Medication Details Route Status Patient Instructions Prescription Expires Prescription Number Last Dispense Date Ordering Provider Order Date Order Qty Source Adalimumab (Humira Crohn's Starter Pack) Kit Multiple Component 40 mg per 0.8 mL Subcutaneou s INJECT 40MG/0.8 ML (PEN) UNDER THE SKIN EVERY 2 WEEKS FOR PSORIATI C ARTHRITI Kiet ham 12/07/2023 [id number] PORFIRIO POTTER 2023 6 [facility] ADALIMUMAB 40MG/0.8ML INJ,PEN,KIT INJECT 40MG/0.8 ML (PEN) UNDER THE SKIN EVERY 2 WEEKS FOR PSORIATI C ARTHRITI S SUBCUT ANEOUS DISCONT INUED 12/07/2023 [id number] 4 SNEHA POTTER Y M 2023 6 [facility] ADALIMUMAB- BWWD 40MG/0.8ML AUTOINJECTO R INJECT 40MG/0.8 ML UNDER THE SKIN EVERY WEEK FOR PSORIATI C ARTHRITI S SUBCUT ANEOUS ACTIVE 12/22/2025 [id number] 5 BABAR LIU GAGAN E 2024 4 [facility] ADALIMUMAB- BWWD 40MG/0.8ML AUTOINJECTO R INJECT 40MG/0.8 ML UNDER THE SKIN EVERY 2 WEEKS FOR PSORIATI C ARTHRITI S SUBCUT ANEOUS DISCONT INUED (EDIT) 07/10/2025 [id number] 5 SNEHA POTTER Y M 2024 2 [facility] ADALIMUMAB- BWWD 40MG/0.8ML AUTOINJECTO R INJECT 40MG/0.8 ML UNDER THE SKIN EVERY 2 WEEKS PSORIATI C ARTHRITI S SUBCUT ANEOUS 06/21/2024 [id number] 4 TARIQAM Y M 2023 6 [facility] ADALIMUMAB- BWWD 40MG/0.8ML AUTOINJECTO R INJECT 40MG/0.8 ML (PEN) UNDER THE SKIN EVERY 2 WEEKS FOR PSORIATI C ARTHRITI S SUBCUT ANEOUS 12/07/2023 [id number] 4 SNEHA POTTER Y M 2023 6 [facility] ATORVASTATI N CA 20MG TAB TAKE ONE-HALF TABLET BY MOUTH EVERY EVENING FOR HIGH CHOLESTE ROL ORAL ACTIVE 01/14/2026 [id number] 5 TAJ JOSE A 2024 45 [facility] BUPROPION HCL 150MG 24HR TAB,SA TAKE ONE TABLET BY MOUTH ONCE A DAY FOR DEPRESSI ON SWALLOW WHOLE - DO NOT CRUSH OR CHEW. ORAL ACTIVE 03/23/2025 [id number] 5 TAJ JOSE ID A 2024 90 [facility] BUPROPION HCL 150MG 24HR TAB,SA TAKE ONE TABLET BY MOUTH ONCE A DAY FOR DEPRESSI ON SWALLOW WHOLE - DO NOT CRUSH OR CHEW. ORAL DISCONT INUED 07/05/2024 [id number] 4 [place] TTISA 2023 90 [facility] BUPROPION HCL 150MG 24HR TAB,SA TAKE ONE TABLET BY MOUTH ONCE A DAY FOR DEPRESSI ON SWALLOW WHOLE - DO NOT CRUSH OR CHEW. ORAL 08/29/2024 [id number] 4 [place] TTISA 2023 90 [facility] CARBOXYMETH YLCELLULOSE NA 0.5% SOLN,OPH INSTILL 1 DROP IN BOTH EYES FOUR TIMES A DAY NEEDED OPHTHA LMIC SUSPEND ED 07/07/2025 [id number] 5 TERENCE FLOREZ 2024 45 [facility] EMPAGL[facility] 25MG TAB TAKE ONE-HALF TABLET BY MOUTH ONCE A DAY ORAL ACTIVE 01/14/2026 [id number] 5 TAJ JOSE ID A 2024 45 [facility] INSULIN,GLA RGINE,HUMAN 100 UNIT/ML INJ,SOLOSTA R,3ML INJECT 46 UNITS UNDER THE SKIN AT BEDTIME ADMINIST ER AT SAME TIME EACH DAY DIRECTED . DISCARD ANY OPEN CARTRIDG E AFTER 28 DAYS. SUBCUT ANEOUS ACTIVE 12/24/2025 [id number] 5 CHETNA COREY HAT MG 2024 5 [facility] INSULIN,GLA RGINE,HUMAN 100 UNIT/ML INJ,SOLOSTA R,3ML INJECT 46 UNITS UNDER THE SKIN AT BEDTIME ADMINIST ER AT SAME TIME EACH DAY DIRECTED . DISCARD ANY OPEN CARTRIDG E AFTER 28 DAYS. SUBCUT ANEOUS DISCONT INUED 10/05/2025 [id number] 5 CHETNA COREY HAT MG 2024 5 [facility] INSULIN,GLA RGINE,HUMAN 100 UNIT/ML INJ,SOLOSTA R,3ML INJECT 46 UNITS UNDER THE SKIN AT BEDTIME ADMINIST ER AT SAME TIME EACH DAY DIRECTED . DISCARD ANY OPEN CARTRIDG E AFTER 28 DAYS. SUBCUT ANEOUS DISCONT INUED 07/09/2025 [id number] 5 CHETNA COREY HAT MG 2024 5 [facility] INSULIN,GLA RGINE-YFGN 100UNIT/ML INJ PEN,3ML INJECT 20 UNITS UNDER THE SKIN AT BEDTIME FOR DIABETES ADMINIST ER AT SAME TIME EACH DAY DIRECTED . DISCARD ANY OPEN CARTRIDG E AFTER 28 DAYS. SUBCUT ANEOUS DISCONT INUED BY PROVIDE R 03/24/2025 [id number] 4 JANELL JONES 2023 5 [facility] METFORMIN HCL 1000MG TAB TAKE ONE TABLET BY MOUTH TWICE A DAY WITH MEALS TAKE WITH FOOD. AVOID ALCOHOL. DISCONTI NUE BEFORE GETTING XRAY DYE. ORAL ACTIVE 04/13/2025 [id number] 5 TAJ JOSE 2024 180 [facility] METFORMIN HCL 1000MG TAB TAKE ONE TABLET BY MOUTH TWICE A DAY WITH MEALS FOR DIABETES TAKE WITH FOOD. AVOID ALCOHOL. DISCONTI NUE BEFORE GETTING XRAY DYE. ORAL DISCONT INUED BY PROVIDE R 07/05/2024 [id number] 4 ME DEVIN [place] 2023 180 [facility] METFORMIN HCL 1000MG TAB TAKE ONE-HALF TABLET BY MOUTH TWICE A DAY WITH MEALS FOR DIABETES TAKE WITH FOOD. AVOID ALCOHOL. DISCONTI NUE BEFORE GETTING XRAY DYE. ORAL DISCONT INUED (EDIT) 06/21/2024 [id number] 4 JANELL JONES 2023 90 [facility] TRIAMCINOLO NE ACETONIDE 0.1% CREAM,TOP APPLY LIGHTLY TO AFFECTED AREA(S) TWICE A DAY FOR PSORIASI S (EXTERNA L USE ONLY) TOPICA L ACTIVE 03/10/2025 [id number] 5 JENARIANNABABAR GAGAN E 2024 80 [facility] Allergies, Adverse Reactions, Alerts Combined list of allergies from Department of Defense and Veterans Affairs facilities. It does not include entries that were removed or entered in error. Substance Category Reaction Severity Reaction type Status Date Reported Comments Source No Known Allergies Drug allergy (disorder) active 08/07/2004 [facility] Immunizations Combined list of available immunizations from the Department of Defense and Veterans Affairs facilities. Immunization Series Date Given Administered By Site Reaction Lot Number CVX Code Drug Power Lineworker Status Comments Source PNEUMOCOCCAL CONJUGATE PCV 13 2018 133 complet ed [facility] INFLUENZA VIRUS VACCINE, 3YR AND OLDER (HISTORICAL) 2004 88 complet ed [facility] TETANUS TOXOID, UNSPECIFIED FORMULATION 1999 112 complet ed [facility] Results Combined list of recent chemistry, hematology and other laboratory results from Department of Defense and Veterans Affairs, ranging from 15 months to all on record, depending upon the facility. Order Name Results Value Reference Range Date Interpretation Specimen Comments Source MICRAL/C REAT PROFILE (STL) ALBUMIN [MASS/VOLU ME] IN URINE 9.8 mg/L 01/13 Specimen Type: URINE Comment: uALB/CREAT Ratio Unable to be calculated Ordering Provider: RAIMUNDO JOSE Report Released Date/Time: Jan 12, 2025 10:13 AM Reporting Lab: [facility] [address] [facility] [address] Performing Lab: [facility] [address] [address] [facility] MICRAL/C REAT PROFILE (STL) ALBUMIN/CR EATININE [MASS RATIO] IN URINE commentm g/g 0 - 29 01/13 Specimen Type: URINE Comment: uALB/CREAT Ratio Unable to be calculated Ordering Provider: RAIMUNDO JOSE Report Released Date/Time: Jan 12, 2025 10:13 AM Reporting Lab: [address] [address] Performing Lab: [address] [address] [facility] MICRAL/C REAT PROFILE (STL) CREATININE [MASS/VOLU ME] IN URINE 357.6 mg/dL 63 - 166 01/13 H Specimen Type: URINE Comment: uALB/CREAT Ratio Unable to be calculated Ordering Provider: RAIMUNDO JOSE Report Released Date/Time: Jan 12, 2025 10:13 AM Reporting Lab: [address] [address] Performing Lab: [address] [address] [facility] URINALYS IS (STL-PB) COLOR OF URINE Yellow 01/13 Specimen Type: URINE No comment entered. Ordering Provider: RAIMUNDO JOSE Report Released Date/Time: Jan 12, 2025 10:13 AM Reporting Lab: [address] [address] Performing Lab: [address] [address] [facility] URINALYS IS (STL-PB) BILIRUBIN. TOTAL [PRESENCE] IN URINE BY TEST STRIP Negative mg/dL 01/13 Specimen Type: URINE No comment entered. Ordering Provider: RAIMUNDO JOSE Report Released Date/Time: Jan 12, 2025 10:13 AM Reporting Lab: [address] [address] Performing Lab: [address] [address] [facility] URINALYS IS (STL-PB) PH OF URINE BY TEST STRIP 5.5 5.0 - 8.0 01/13 Specimen Type: URINE No comment entered. Ordering Provider: RAIMUNDO JOSE Report Released Date/Time: Jan 12, 2025 10:13 AM Reporting Lab: [address] [address] Performing Lab: [address] [address] [facility] URINALYS IS (STL-PB) LEUKOCYTES [#/AREA] IN URINE SEDIMENT BY MICROSCOPY HIGH POWER FIELD 2 /[HPF] 0 - 5 01/13 Specimen Type: URINE No comment entered. Ordering Provider: RAIMUNDO JOSE Report Released Date/Time: Jan 12, 2025 10:13 AM Reporting Lab: [address] [address] Performing Lab: [address] [address] [facility] URINALYS IS (STL-PB) ERYTHROCYT ES [#/VOLUME] IN URINE SEDIMENT BY MICROSCOPY HIGH POWER FIELD 2 /[HPF] 0 - 5 01/13 Specimen Type: URINE No comment entered. Ordering Provider: RAIMUNDO JOSE Report Released Date/Time: Jan 12, 2025 10:13 AM Reporting Lab: [address] [address] Performing Lab: [address] [address] [facility] URINALYS IS (STL-PB) APPEARANCE OF URINE Clear 01/13 Specimen Type: URINE No comment entered. Ordering Provider: RAIMUNDO JOSE Report Released Date/Time: Jan 12, 2025 10:13 AM Reporting Lab: [address] [address] Performing Lab: [address] [address] [facility] URINALYS IS (STL-PB) NITRITE [PRESENCE] IN URINE BY TEST STRIP Negative mg/dL 01/13 Specimen Type: URINE No comment entered. Ordering Provider: RAIMUNDO JOSE Report Released Date/Time: Jan 12, 2025 10:13 AM Reporting Lab: [address] [address] Performing Lab: [address] [address] [facility] URINALYS IS (STL-PB) EPITHELIAL CELLS [#/AREA] IN URINE SEDIMENT BY MICROSCOPY LOW POWER FIELD <1/[HPF] 0 - 5 01/13 Specimen Type: URINE No comment entered. Ordering Provider: RAIMUNDO JOSE Report Released Date/Time: Jan 12, 2025 10:13 AM Reporting Lab: [address] [address] Performing Lab: [address] [phone] [place] [address] URINALYS IS (STL-PB) MUCUS [PRESENCE] IN URINE SEDIMENT BY LIGHT MICROSCOPY OCC/[LPF ] 01/13 Specimen Type: URINE No comment entered. Ordering Provider: RAIMUNDO JOSE Report Released Date/Time: Jan 12, 2025 10:13 AM Reporting Lab: [address] [address] Performing Lab: [address] [address] [facility] URINALYS IS (STL-PB) GLUCOSE [MASS/VOLU ME] IN URINE BY TEST STRIP 200 mg/dL 01/13 H Specimen Type: URINE No comment entered. Ordering Provider: RAIMUNDO JOSE Report Released Date/Time: Jan 12, 2025 10:13 AM Reporting Lab: [address] [address] Performing Lab: [address] [address] [facility] URINALYS IS (STL-PB) PROTEIN [MASS/VOLU ME] IN URINE BY TEST STRIP 20 mg/dL 01/13 H Specimen Type: URINE No comment entered. Ordering Provider: RAIMUNDO JOSE Report Released Date/Time: Jan 12, 2025 10:13 AM Reporting Lab: [address] [address] Performing Lab: [address] [address] [facility] URINALYS IS (STL-PB) URN.UROBIL INOGEN Normalmg /dL 01/13 Specimen Type: URINE No comment entered. Ordering Provider: RAIMUNDO JOSE Report Released Date/Time: Jan 12, 2025 10:13 AM Reporting Lab: [address] [address] Performing Lab: [address] [address] [facility] URINALYS IS (STL-PB) HEMOGLOBIN [MASS/VOLU ME] IN URINE BY TEST STRIP Negative mg/dL 01/13 Specimen Type: URINE No comment entered. Ordering Provider: RAIMUNDO JOSE Report Released Date/Time: Jan 12, 2025 10:13 AM Reporting Lab: [address] [address] Performing Lab: [address] [address] [facility] URINALYS IS (STL-PB) KETONES [MASS/VOLU ME] IN URINE BY TEST STRIP Negative mg/dL 01/13 Specimen Type: URINE No comment entered. Ordering Provider: RAIMUNDO JOSE Report Released Date/Time: Jan 12, 2025 10:13 AM Reporting Lab: [address] [address] Performing Lab: [address] [address] [facility] URINALYS IS (STL-PB) URN.LEUK.E ST. Negative mg/dL 01/13 Specimen Type: URINE No comment entered. Ordering Provider: RAIMUNDO JOSE Report Released Date/Time: Jan 12, 2025 10:13 AM Reporting Lab: [place] [address] [address] Performing Lab: [place] [address] [phone] [place] [address] URINALYS IS (STL-PB) SPECIFIC GRAVITY OF URINE 1.035 01/13 H Specimen Type: URINE No comment entered. Ordering Provider: RAIMUNDO JOSE Report Released Date/Time: Jan 12, 2025 10:13 AM Reporting Lab: [address] [address] Performing Lab: [address] [address] [facility] TESTOSTE [place], FREE PANEL TESTOSTERO NE [MASS/VOLU ME] IN SERUM OR PLASMA 369 ng/dL 250 - 1100 01/13 Specimen Type: SERUM Comment: For additional information , please refer to http://educ ation.[employer] .Hydrostor/faq/ TotalTestos teroneLCMSM [id number] (This link is being provided for information al/ educational purposes only.) This test was developed and its analytical performance characteris tics have been determined by [employer] [place], [place]. It has not been cleared or approved by the U.S. Food and Drug Administrat ion. This assay has been validated pursuant to the CLIA regulations and is used for clinical purposes. Test Performed by [facility], [employer] [place], [address] [place], [place] Singh Hart M.D., Ph.D., Director of Laboratorie s , CLIA [id number] Ordering Provider: RAIMUNDO JOSE Report Released Date/Time: Jan 13, 2025 11:44 AM Reporting Lab: [place] [address] [facility] [address] Performing Lab: [facility] [address] [facility] TESTOSTE [place], FREE PANEL ALBUMIN [MASS/VOLU ME] IN SERUM OR PLASMA 4.5 g/dL 3.6 - 5.1 01/13 Specimen Type: SERUM Comment: For additional information , please refer to http://SecureNet/faq/ TotalTestos teroneLCMSM [email or web address] (This link is being provided for information al/ educational purposes only.) This test was developed and its analytical performance characteris tics have been determined by [employer] [place], [place]. It has not been cleared or approved by the U.S. Food and Drug Administrat ion. This assay has been validated pursuant to the CLIA regulations and is used for clinical purposes. Test Performed by [facility], [employer] [place], [address] [place] [address] Singh Hart M.D., Ph.D., Director of Laboratorie s , CLIA [id number] Ordering Provider: RAIMUNDO JOSE Report Released Date/Time: Jan 13, 2025 11:44 AM Reporting Lab: [address] [address] Performing Lab: [facility] [id number] [place] [address] [facility] TESTOSTE [place], FREE PANEL TESTOSTERO NE FREE [MASS/VOLU ME] IN SERUM OR PLASMA 49.0 pg/mL 46.0 - 224.0 01/13 Specimen Type: SERUM Comment: For additional information , please refer to http://[employer] .Hydrostor/faq/ TotalTestos teroneLCMSM [id number] (This link is being provided for information al/ educational purposes only.) This test was developed and its analytical performance characteris tics have been determined by [employer] [place], [place]. It has not been cleared or approved by the U.S. Food and Drug Administrat ion. This assay has been validated pursuant to the CLIA regulations and is used for clinical purposes. Test Performed by [facility] [employer] [place], [address] [place] [address] Singh Hart M.D., Ph.D., Director of Laboratorie s , CLIA [id number] Ordering Provider: RAIMUNDO JOSE Report Released Date/Time: Jan 13, 2025 11:44 AM Reporting Lab: [address] [address] Performing Lab: [address] [facility] TESTOSTE [place], FREE PANEL TESTOSTERO NE.FREE+WE AKLY BOUND [MASS/VOLU ME] IN SERUM OR PLASMA 100.8 ng/dL 110.0 - 575.0 01/13 L Specimen Type: SERUM Comment: For additional information , please refer to http://educ ation.[employer] .Hydrostor/faq/ TotalTestos teroneLCMSM [id number] (This link is being provided for information al/ educational purposes only.) This test was developed and its analytical performance characteris tics have been determined by [employer] [place], [place]. It has not been cleared or approved by the U.S. Food and Drug Administrat ion. This assay has been validated pursuant to the CLIA regulations and is used for clinical purposes. Test Performed by [employer] [place], [address] [place] [address] Snigh Hart M.D., Ph.D., Director of Laboratorie s , CLIA [id number] Ordering Provider: RAIMUNDO JOSE Report Released Date/Time: Jan 13, 2025 11:44 AM Reporting Lab: [address] [address] Performing Lab: [address] [facility] TESTOSTE [place], FREE PANEL SEX HORMONE BINDING GLOBULIN [MOLES/VOL UME] IN SERUM OR PLASMA 32 nmol/L 10 - 50 01/13 Specimen Type: SERUM Comment: For additional information , please refer to http://educ ation.[employer] .com/faq/ TotalTestos teroneLCMSM [id number] (This link is being provided for information al/ educational purposes only.) This test was developed and its analytical performance characteris tics have been determined by [employer] [place]. It has not been cleared or approved by the U.S. Food and Drug Administrat ion. This assay has been validated pursuant to the CLIA regulations and is used for clinical purposes. Test Performed by [facility] [place], [address] [place] [address] Singh Hart M.D., Ph.D., Director of Laboratorie s , CLIA [id number] Ordering Provider: RAIMUNDO JOSE Report Released Date/Time: Jan 13, 2025 11:44 AM Reporting Lab: [facility] [address] [facility] [address] Performing Lab: [address] [facility] HIV COMBO FOURTH GENERATI ON (STL) HIV 1+2 AB+HIV1 P24 AG [PRESENCE] IN SERUM OR PLASMA BY IMMUNOASSA Y Nonreact laura 01/13 Specimen Type: SERUM No comment entered. Ordering Provider: RAIMUNDO JOSE Report Released Date/Time: Jan 13, 2025 11:52 AM Reporting Lab: [facility] [address] [place] [address] Performing Lab: [address] [address] [facility] LUTEINIZ ING HORMONE LUTROPIN [UNITS/VOL UME] IN SERUM OR PLASMA 3.3 m[IU]/mL 1.5 - 9.3 01/13 Specimen Type: SERUM Comment: Test Performed by [facility], [address] [place], [place] Singh Hart M.D., Ph.D., Director of Laboratorie s , CLIA [id number] Ordering Provider: RAIMUNDO JOSE Report Released Date/Time: Jan 13, 2025 11:44 AM Reporting Lab: [address] [address] Performing Lab: [address] [facility] FSH (STL-MA) FOLLITROPI N [UNITS/VOL UME] IN SERUM OR PLASMA 4.3 m[IU]/mL 1.4 - 12.8 01/13 Specimen Type: SERUM Comment: Test Performed by [facility], [facility], [address] [place] [address] Singh Hart M.D., Ph.D., Director of Laboratorie s , CLIA [id number] Ordering Provider: RAIMUNDO JOSE Report Released Date/Time: Jan 13, 2025 11:44 AM Reporting Lab: [address] [address] Performing Lab: [address] [facility] TSH (MA-PB) THYROTROPI N [UNITS/VOL UME] IN SERUM OR PLASMA 0.844 u[IU]/mL 0.47 - 5 01/13 Specimen Type: SERUM No comment entered. Ordering Provider: RAIMUNDO JOSE Report Released Date/Time: Jan 13, 2025 11:44 AM Reporting Lab: [address] [address] Performing Lab: [address] [address] [facility] PROLACTI N (STL-Eff 04/06) PROLACTIN [MASS/VOLU ME] IN SERUM OR PLASMA 6.68 ng/mL 3.5 - 19.4 01/13 Specimen Type: PLASMA No comment entered. Ordering Provider: RAIMUNDO JOSE Report Released Date/Time: Jan 13, 2025 11:44 AM Reporting Lab: [address] [address] Performing Lab: [address] [address] [facility] VITAMIN D, 25-HYDRO XY 25-HYDROXY VITAMIN D3 [MASS/VOLU ME] IN SERUM OR PLASMA 34.3 ng/mL 30 - 96 01/13 Specimen Type: SERUM No comment entered. Ordering Provider: RAIMUNDO JOSE Report Released Date/Time: Jan 12, 2025 10:13 AM Reporting Lab: [address] [address] Performing Lab: [address] [address] [facility] HGA1C HEMOGLOBIN A1C/HEMOGL OBIN.TOTAL IN BLOOD 9.6 4.0 - 6.0 01/13 H Specimen Type: BLOOD No comment entered. Ordering Provider: RAIMUNDO JOSE Report Released Date/Time: Jan 12, 2025 10:13 AM Reporting Lab: [address] [address] Performing Lab: [address] [address] [facility] Vital Signs Combined list of inpatient and outpatient Vital Signs from Department of Defense and Veterans Affairs, ranging from 12 months to all on record, depending upon the facility. Vital Sign Value Date Comments Source SYSTOLIC BLOOD PRESSURE 132 01/13/2025 11:15:32 [facility] DIASTOLIC BLOOD PRESSURE 83 01/13/2025 11:15:32 [facility] PULSE OXIMETRY 95 % 01/13/2025 11:15:32 [facility] WEIGHT 232.3 01/13/2025 11:15:32 [facility] BMI 34 kg/m2 01/13/2025 11:15:32 [facility] PAIN 0 01/13/2025 11:15:32 [facility] TEMPERATURE 98.6 01/13/2025 11:15:32 [facility] PULSE 99 01/13/2025 11:15:32 [facility] Priya [facility] RESPIRATION 18 01/13/2025 11:15:32 [facility] SYSTOLIC BLOOD PRESSURE 116 12/10/2024 11:10:04 [facility] DIASTOLIC BLOOD PRESSURE 75 12/10/2024 11:10:04 [facility] PULSE OXIMETRY 97 12/10/2024 11:10:04 S Jenny [facility] WEIGHT 230.7 12/10/2024 11:10:04 [facility] BMI 34 kg/m2 12/10/2024 11:10:04 [facility] PAIN 4 12/10/2024 11:10:04 [facility] HEIGHT 69 12/10/2024 11:10:04 [facility] TEMPERATURE 97.7 12/10/2024 11:10:04 [facility] PULSE 85 12/10/2024 11:10:04 [facility] 20 12/10/2024 11:10:04 [facility] SYSTOLIC BLOOD PRESSURE 129 07/08/2024 11:03:59 [facility] DIASTOLIC BLOOD PRESSURE 86 07/08/2024 11:03:59 [facility] PULSE OXIMETRY 98 07/08/2024 11:03:59 S Jenny [facility] WEIGHT 232.7 07/08/2024 11:03:59 [facility] BMI 34 kg/m2 07/08/2024 11:03:59 . [facility] PAIN 0 07/08/2024 11:03:59 [facility] TEMPERATURE 98.2 07/08/2024 11:03:59 [facility] PULSE 92 07/08/2024 11:03:59 [facility] Priya [facility] RESPIRATION 18 07/08/2024 11:03:59 [facility] SYSTOLIC BLOOD PRESSURE 131 04/06/2024 11:30:36 [facility] DIASTOLIC BLOOD PRESSURE 83 04/06/2024 11:30:36 [facility] PULSE OXIMETRY 98 04/06/2024 11:30:36 S Jenny [facility] WEIGHT 216.9 04/06/2024 11:30:36 [facility] BMI 32 kg/m2 04/06/2024 11:30:36 [facility] PAIN 0 04/06/2024 11:30:36 [facility] TEMPERATURE 98.9 04/06/2024 11:30:36 [facility] PULSE 79 04/06/2024 11:30:36 [facility] RESPIRATION 18 04/06/2024 11:30:36 [facility] SYSTOLIC BLOOD PRESSURE 117 03/23/2024 04:29:12 [facility] DIASTOLIC BLOOD PRESSURE 79 03/23/2024 04:29:12 [facility] PULSE OXIMETRY 97 03/23/2024 04:29:12 S Jenny [facility] PAIN 0 03/23/2024 04:29:12 [facility] TEMPERATURE 97.9 03/23/2024 04:29:12 [facility] PULSE 74 03/23/2024 04:29:12 . [facility] RESPIRATION 16 03/23/2024 04:29:12 [facility] Encounters Combined list of: 1) Encounters from Department of Veterans Affairs facilities going backup to the last 18 months, not all VA inpatient encounters are included; 2) Encounters from the Department of Defense facilities going backup to 280 months. Location Location Details Encounter Type Encounter Number Reason For Visit Attending Provider ADM Date DC Date Status Disposition Source [facility] Outpatient Encounter [id number] 12/28 [facility] Outpatient Encounter [id number] 01/18 [facility] OFFICE O/P NEW MOD 45 MIN [id number] Diagnos is: ICD-10- CM E11.9 Type 2 diabete s mellitu s without complic ations ILANA JOSE 03/22 [facility] EMERGENCY DEPT VISIT MOD MDM [id number] Diagnos is: ICD-10- CM R73.9 Hypergl ycemia, unspeci colted ANDRIY RICO 03/22 [facility] Inpatient Encounter [id number] JANELL JONES 03/22 [facility] Inpatient Encounter [id number] Admit Reason: HYPERGL YCEMIA AVERY FUENTES 03/22 [facility] Inpatient Encounter [id number] Gerardo LANDIN 03/22 [facility] Inpatient Encounter [id number] Gerardo LANDIN 03/22 [facility] Inpatient Encounter [id number] Gerardo LANDIN IBIAN 03/22 [facility] Inpatient Encounter [id number] Gerardo LANDIN IBIAN 03/22 [facility] Inpatient Encounter [id number] 03/23 [facility] Inpatient Encounter [id number] Satya CORONEL 03/23 [facility] Inpatient Encounter [id number] AJYLON RED 03/23 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 Outpatient Encounter [id number] 03/23 [facility] Outpatient Encounter [id number] TERESO KAY A 03/24 [facility] Outpatient Encounter [id number] TERESO KAY A 03/25 [facility] Outpatient Encounter [id number] 03/29 [facility] Outpatient Encounter [id number] 03/31 [facility] OFFICE O/P EST HI 40 MIN [id number] Diagnos is: ICD-10- CM E11.9 Type 2 diabete s mellitu s without complic ations MET ROLANDO IZA 04/06 [facility] Outpatient Encounter [id number] 04/06 [facility] IMG RTA DETCJ/MNTR DS STAFF [id number] Diagnos is: ICD-10- CM Z13.5 Encount er for screeni ng for eye and ear disorde SA PATRICIA Vaca 04/06 [facility] IMG RTA DETC/MNTR DS PHY/QHP [id number] Diagnos is: ICD-10- CM Z13.5 Encount er for screeni ng for eye and ear disorde CRISTINA Ybarra 04/08 [facility] Outpatient Encounter [id number] 06/14 [facility] Outpatient Encounter [id number] 06/17 [facility] Outpatient Encounter [id number] 06/21 [facility] Outpatient Encounter [id number] 06/24 [facility] Outpatient Encounter [id number] 06/25 [facility] OFF/OP EST MAY X REQ PHY/QHP [id number] Diagnos is: ICD-10- CM G47.33 Obstruc tive sleep apnea (adult) ([facility] QUINCY PARADA G 06/28 [facility] Outpatient Encounter [id number] 06/29 [facility] OFFICE O/P EST MOD 30 MIN [id number] Diagnos is: ICD-10- CM H52.4 Presbyo Edward Ch 07/06 [facility] OFFICE O/P EST MOD 30 MIN [id number] Diagnos is: ICD-10- CM E11.9 Type 2 diabete s mellitu s without complic ations EMILY FAUSTIN 07/08 [facility] OFFICE O/P EST MOD 30 MIN [id number] Diagnos is: ICD-10- CM L40.52 Psoriat ic arthrit is PORFIIRO Blanton 07/08 [facility] Outpatient Encounter [id number] 07/29 [facility] Outpatient Encounter [id number] JEN BEAVERS AM H 10/04 [facility] Outpatient Encounter [id number] ILANA JOSE A 10/06 [facility] Outpatient Encounter [id number] 10/06 [facility] Outpatient Encounter [id number] ILANA JOSE A 10/07 [facility] Outpatient Encounter [id number] 10/15 [facility] Outpatient Encounter [id number] YOCHUM,AUG K 11/25 [facility] OFFICE O/P EST MOD 30 MIN [id number] Diagnos is: ICD-10- CM L40.59 Other psoriat ic arthrop athy DIFFIE,COL IN E 12/10 [facility] PH1 ASSMT&MGMT NQHP 5-10 [id number] Diagnos is: ICD-10- CM L40.52 Psoriat ic arthrit is mutilan s YOCHUM,AUG K 12/21 [facility] Outpatient Encounter [id number] YOCHUM,AUG K 12/21 [facility] PT EDUCATION NOC INDIVID [id number] Diagnos is: ICD-10- CM Z02.9 Encount er for adminis trative examina tilian, unspeci fiVANESSA Wallace K 12/21 [facility] Outpatient Encounter [id number] 12/23 [facility] OFFICE O/P EST HI 40 MIN [id number] Diagnos is: ICD-10- CM R73.9 Hypergl ycemia, unspeci fied REBECA,ILANA D A 01/13 [facility] Outpatient Encounter [id number] REBECA,ILANA D A 01/18 [facility] Procedures Combined list of: 1) Procedures from Department of Veterans Affairs facilities going back up to thelast 18 months, not all [place] non-surgical procedures are included; 2) All procedures from the Department of Defense facilities. Procedure Procedure Type Code Date Perfomer Comments Sour e DELUXE FRAME 11/27/2001 [facility] AUDIOMETRIC TESTING OF GROUPS 06/16/2001 [facility] DELUXE FRAME 04/21/2001 [facility] TYPHOID VACCINE, CAPSULAR POLYSACCHARIDE (VICPS), FOR INTRAMUSCULAR USE 08/07/2004 [facility] PURE TONE AUDIOMETRY (THRESHOLD); AIR ONLY 08/02/2004 [facility] INTRAVENOUS INFUSION, THERAPY/DIAGNOSIS, ADMINISTERED PHYSICIAN/UNDER DIRECT SUPERVISION, PHYSICIAN; EA ADDITIONAL HOUR, UP TO EIGHT (8) HOURS (LIST SEPARATELY ADDITION TO CODE, PRIMARY PROCEDURE) 07/12/2004 [facility] THERAPEUTIC PROCEDURE(S), GROUP (2 OR MORE INDIVIDUALS) 06/14/2004 [facility] THERAPEUTIC PROCEDURE(S), GROUP (2 OR MORE INDIVIDUALS) 06/12/2004 [facility] CHIROPRACTIC MANIPULATIVE TREATMENT (CMT); SPINAL, 1-2 REGIONS 06/05/2004 [facility] EDUCATIONAL SUPPLIES, SUCH A S BOOKS, TAPES, AND PAMPHLETS, FOR THE PATIENT'S EDUCATION AT COST TO PHYSICIAN OR OTHER QUALIFIED HEALTH HAM CURER 06/05/2004 [facility] PHYSICAL THERAPY EVALUATION 05/08/2004 [facility] SUPP &MATERIAL (EXCEPT SPECTACLE),PROVID,THE PHYS/OTH QUALIFIED HEALTH HAM CURER OVER &ABOVE THOSE USUALLY INCLD W THE OFFICE VISIT/OTH SER RENDERED (LIST DRUG,TRAYS,SUPP,OR MATERIAL PROVID) 04/24/2004 [facility] SUPP &MATERIAL (EXCEPT SPECTACLE),PROVID,THE PHYS/OTH QUALIFIED HEALTH HAM CURER OVER &ABOVE THOSE USUALLY INCLD W THE OFFICE VISIT/OTH SER RENDERED (LIST DRUG,TRAYS,SUPP,OR MATERIAL PROVID) 04/23/2004 [facility] THERAPEUTIC ACTIVITIES, DIRECT (ONE-ON-ONE) PATIENT CONTACT (USE OF DYNAMIC ACTIVITIES TO IMPROVE FUNCTIONAL PERFORMANCE), EACH 15 MINUTES 04/02/2004 [facility] PHYSICAL THERAPY EVALUATION 04/02/2004 [facility] SUPP &MATERIAL (EXCEPT SPECTACLE),PROVID,THE PHYS/OTH QUALIFIED HEALTH HAM CURER OVER &ABOVE THOSE USUALLY INCLD W THE OFFICE VISIT/OTH SER RENDERED (LIST DRUG,TRAYS,SUPP,OR MATERIAL PROVID) 03/21/2004 [facility] EDUCATIONAL SUPPLIES, SUCH A S BOOKS, TAPES, AND PAMPHLETS, FOR THE PATIENT'S EDUCATION AT COST TO PHYSICIAN OR OTHER QUALIFIED HEALTH HAM CURER 02/21/2004 [facility] INTRAMUSCULAR INJECTION OF ANTIBIOTIC (SPECIFY) 02/01/2004 [facility] INTRAVENOUS INFUSION FOR THERAPY/DIAGNOSIS, ADMINISTERED BY PHYSICIAN OR UNDER DIRECT SUPERVISION OF PHYSICIAN; UP TO ONE HOUR 01/12/2004 [facility] PURE TONE AUDIOMETRY (THRESHOLD); AIR ONLY 03/11/2003 [facility] VIS FUNCT SCREEN,AUTOMAT/SEMI-AUTOMAT BILAT QUANT DETERM VISUAL ACUITY,OCULAR ALIGN,COLOR VISION,PSEUDOISOCHROMAT PLATES,& FIELD VIS (MAY INC ALL/SOME SCRN DETERM FOR CONTRAST SENSITIV,VIS UND GLARE) 05/06/2002 [facility] EDUCATIONAL SUPPLIES, SUCH A S BOOKS, TAPES, AND PAMPHLETS, FOR THE PATIENT'S EDUCATION AT COST TO PHYSICIAN OR OTHER QUALIFIED HEALTH HAM CURER 05/04/2002 [facility] SUPP &MATERIAL (EXCEPT SPECTACLE),PROVID,THE PHYS/OTH QUALIFIED HEALTH HAM CURER OVER &ABOVE THOSE USUALLY INCLD W THE OFFICE VISIT/OTH SER RENDERED (LIST DRUG,TRAYS,SUPP,OR MATERIAL PROVID) 04/21/2002 [facility] SUPP &MATERIAL (EXCEPT SPECTACLE),PROVID,THE PHYS/OTH QUALIFIED HEALTH HAM CURER OVER &ABOVE THOSE USUALLY INCLD W THE OFFICE VISIT/OTH SER RENDERED (LIST DRUG,TRAYS,SUPP,OR MATERIAL PROVID) 03/23/2002 [facility] PURE TONE AUDIOMETRY (THRESHOLD); AIR ONLY 03/23/2002 [facility] RADIOLOGIC EXAMINATION, HIP, UNILATERAL; COMPLETE, MINIMUM OF 2 VIEWS 03/21/2002 [facility] SUPP &MATERIAL (EXCEPT SPECTACLE),PROVID,THE PHYS/OTH QUALIFIED HEALTH HAM CURER OVER &ABOVE THOSE USUALLY INCLD W THE OFFICE VISIT/OTH SER RENDERED (LIST DRUG,TRAYS,SUPP,OR MATERIAL PROVID) 01/18/2002 [facility] OTHER APPENDECTOMY 11/13/2001 [facility] INTRAVENOUS INFUSION FOR THERAPY/DIAGNOSIS, ADMINISTERED BY PHYSICIAN OR UNDER DIRECT SUPERVISION OF PHYSICIAN; UP TO ONE HOUR 11/11/2001 [facility] OPHTHALMOLOGICAL SERVICES: MEDICAL EXAMINATION AND EVALUATION, WITH INITIATION OR CONTINUATION OF DIAGNOSTIC AND TREATMENT PROGRAM; INTERMEDIATE, ESTABLISHED PATIENT 10/15/2001 [facility] OPHTHALMOLOGICAL SERVICES: MEDICAL EXAMINATION AND EVALUATION, WITH INITIATION OR CONTINUATION OF DIAGNOSTIC AND TREATMENT PROGRAM; COMPREHENSIVE, ESTABLISHED PATIENT, 1 OR MORE VISITS 10/14/2001 [facility] OPHTHALMOSCOPY, EXTENDED, WITH RETINAL DRAWING (EG, FOR RETINAL DETACHMENT, MELANOMA), WITH INTERPRETATION AND REPORT; INITIAL 10/13/2001 [facility] PATIENT EDUCATION, NOT OTHERWISE CLASSIFIED, NON-PHYSICIAN PROVIDER, INDIVIDUAL, PER SESSION 08/03/2001 [facility] PURE TONE AUDIOMETRY (THRESHOLD); AIR ONLY 12/17/2000 [facility] PURE TONE AUDIOMETRY (THRESHOLD); AIR ONLY 11/12/2000 [facility] PURE TONE AUDIOMETRY (THRESHOLD); AIR ONLY 06/06/2000 [facility] Social History Combined list of available smoking, tobacco, and other social history from Department of Defense and Veterans Affairs facilities. Social History Type Response Date Comment Source Tobacco smoking status NHIS VA-TOBACCO USE WI 30 MIN OF WAKEUP 04/06/2024 [facility] History of tobacco use VA-TOBACCO USE > 15 LESS THAN 30 YEARS 04/06/2024 [facility] History of tobacco use ORYX ADMIT TOBACCO SCREEN NO 03/22/2024 [facility] History of tobacco use TOBACCO USER OFFERED MEDS 03/05/2018 [facility] History of tobacco use TOBACCO MEDS OFFERED BUT DECLINED 07/31/2016 [facility] History of tobacco use TOBACCO OFFERED PT MEDS (PROVIDER) 06/09/2007 [facility] History of tobacco use CURRENT SMOKER 12/09/2006 <1 PPD, social use [facility] History of tobacco use CURRENT SMOKER 10/23/2005 <1 PPD [facility] History of tobacco use CURRENT SMOKER 05/09/2005 Cigarette smoker, <1 PPD [facility] This section is an empty social history section. [facility] Plan of Care List of future care activities from Department of Veterans Affairs facilities. Additional future care activities may be listed in the Assessment and Plan section. Date/Time Care Activity Care Activity Detail Facili ty 02/17/2025 AMBULATORY - MEDICINE AMBULATORY - MEDICI [facility]
--- OUTSIDE RECORDS SUMMARY | 2025-01-20 10:28 | XMS_ITS | Encounter Summary ---
Author Name [facility] [place] [facility] [place] [facility] Address [address] [place] [address] Support Name Relationship Address Phone FIONA KYLE Next of Kin [id number] [place] [address] FIONA KYLE Emergency Contact [address] [place] [address] Insurance Providers: All historical and [...] Li's Name Patient's Relationship to Policy Li [facility], October 28, 2017 [id number] PATIENT Selected Encounter This section includes the information on record at [place] for the Encounter. Date/Time Encounter Type Encounter Description Reason Pro vider Source Jun 29, 2024 08:42 AM Outpatient Encounter COMMUNITY CARE CONSULT IHE Encounter Template Text not used by [place] Plan of Treatment: Future Appointments (+ 6 months) and Future Tests (+/- 45 days) The Plan of Treatment section includes future care activities for the patient from all [place] treatmentfacilities. This section includes future appointments and future orders which are active, pending or scheduled. Future Appointments This section includes appointments that were scheduled to occur 6 months from the date of the Encounter, up to a maximum of 20 appointments. The data comes from all [place] treatment facilities. Appointment Date/Time Appointment Type Appointme nt Facility Name Jul 06, 2024 02:00 PM AMBULATORY - SURGERY [facility] Jul 08, 2024 11:20 AM AMBULATORY - MEDICINE [facility] Jul 08, 2024 03:00 PM AMBULATORY - MEDICINE [facility] Oct 06, 2024 11:30 AM AMBULATORY - MEDICINE [facility] Dec 10, 2024 11:00 AM AMBULATORY - MEDICINE [facility] Active, Pending, and Scheduled Orders This section includes a listing of several types of active, pending, and scheduled orders, including clinic medications orders, diagnostic test orders, procedure orders and consult orders; where the start date of the order is 45 days before the date of the Encounter or 45 days after the date of theEncounter. The data comes from all [place] treatment facilities. Test Date/Time Test Type Test Details Facility Name Jul 08, 2024 12:00 AM Laboratory - Chemi stry Order HGA1C BLOOD SP [facility] Social History: Smoking Status (Most current) and Tobacco Use (All prior to encounter date) This section includes the most current, and the historical, smoking and tobacco- related health factors from the [place] facility where the Encounter took place. Current Smoking Status This section includes the most current smoking, or tobacco-related health factor, from the [place] facility where the Encounter took place. Date/Time Current Smoking Status Comment Shavonne mesa Apr 06, 2024 11:30 AM VA-TOBACCO USER SOME DAYS [facility] Tobacco Use History This section includes a history of the smoking, or tobacco-related health factors, that were collected on or before the date of the Encounter. The data comes from the [place] facility where the Encounter took place. Date/Time Smoking Status/Tobacco Use Comment F acility Apr 06, 2024 11:30 AM VA-TOBACCO USE ADVICE [facility] Apr 06, 2024 11:30 AM VA-TOBACCO USE PLATE STACKER NO [facility] Apr 06, 2024 11:30 AM VA-TOBACCO USE MED NO [facility] Apr 06, 2024 11:30 AM VA-TOBACCO USE WI 30 MIN OF WAKEUP [facility] Apr 06, 2024 11:30 AM VA-TOBACCO USER SOME DAYS [facility] Mar 22, 2024 05:05 PM ORYX ADMIT TOBACCO SCREEN NO [facility] Mar 05, 2018 01:14 PM CURRENT TOBACCO USER [facility] Mar 05, 2018 01:14 PM CURRENT TOBACCO US ER (READY TO QUIT) [facility] Mar 05, 2018 01:14 PM TOBACCO CESSATION REFERRAL DECLINED [facility] Mar 05, 2018 01:14 PM TOBACCO MEDS OFFER ED BUT DECLINED [facility] Mar 05, 2018 01:14 PM TOBACCO USER OFFERED MEDS [facility] Jul 31, 2016 10:56 AM CURRENT TOBACCO USER [facility] Jul 31, 2016 10:56 AM TOBACCO MEDS OFFER ED BUT DECLINED [facility] Radiology Reports: +/- 30 days of the encounter Radiology Reports For cases when an order for radiology services may have been completed prior to the date of the Encounter, the report list includes the Radiology Reports that were completed up to 30 days before dateof the Encounter. For cases when an order for radiology services may have been completed after the date of the Encounter, the report list also includes the Radiology Reports that were completed up to30 days after date of the Encounter. The data comes from all [place] treatment facilities. Date/Time Radiology Report Provider Source Jul 08, 2024 04:06 PM SPINE CERVICAL MIN 4 OR 5 VIEWS: HUMPHREY CHAKRABORTY [id number] -[id number] M Exm Date: JUL 08, 2024@16:06 Req Phys: ROWAN FLOWERS Pat Loc: -RHEUMATOLOGY MD 2 (Req'g Lo Img Loc: -MAIN RADIOLOGY SUITE Service: [facility], [facility] [address] [place] [address] (Case [id number] COMPLETE) SPINE CERVICAL MIN 4 OR 5 VIEWS (RAD Detailed) CPT:10996 Reason for Study: Psoriatic arthritis ddd neck pain Clinical History: Report Status: Verified Date Reported: JUL 09, 2024 Date Verified: JUL 09, 2024 Speedboat Operator E-Sig:/ES/ANTHONY WELLER Report: Case [id number]. SPINE CERVICAL MIN 4 OR 5 VIEWS DATE: 07/08/2024 4:06 PM HISTORY: Psoriatic arthritis ddd neck pain. COMPARISON: None available. FINDINGS: 4 views of the cervical spine demonstrate no acute fracture.. Alignment is anatomic. Stable syndesmophytes anteriorly/anterolaterally at C2/3. Significant progression of syndesmophytes C4/5. Mild disc narrowing C5/6. Mild uncovertebral and facet osteoarthropathy. No canal stenosis. Spinous processes intact. Impression: Regression of spondyloarthropathy, in keeping with the history of psoriasis. No acute injury or focal destructive process. No vertebral canal stenosis. Primary Interpreting Staff: ANTHONY WELLER, Staff Physician (Speedboat Operator) /[facility] Encounter Notes: All associated encounter notes This section contains the clinical notes associated to the Encounter. Date/Time Encounter Note(s) Provider Source Jun 29, 2024 08:42 AM LETTERS: LOCAL TITLE: [facility] CARE-REQUEST FOR SERVICES (RFS) LETTER ST STANDARD TITLE: LETTERS DATE OF NOTE: JUN 29, 2024@08:42 ENTRY DATE: JUN 29, 2024@08:42:27 AUTHOR: JERILYN ARANGO EXP COSIGNER: URGENCY: STATUS: COMPLETED [facility] [address] [place] [address] [facility] [address] [facility] [address] Dear Provider, Information: Patient Name: HUMPHREY CHAKRABORTY Date of : Feb [facility] has received the request for cpap/supplies from you for services that were not originally authorized in the [employer] for this . Upon review, the following determination has been made: Service has been approved. Cpap/supplies ordered and will be mailed to 's home. Should you have questions, please contact us at [phone] to speak with a patient service station cashier. As a reminder, if applicable, return medical records within 30 days for routine services. Sincerely, [facility] in [facility] Community Sincerely, JERILYN ARANGO REGISTERED NURSE [facility]
--- OUTSIDE RECORDS SUMMARY | 2025-01-20 10:28 | XMS_ITS | Encounter Summary ---
Author Name [facility] [place] [facility] [place] [facility] [facility] [place] Address [address] [place] [address] Support Name Relationship Address Phone FIONA KYLE Next of Kin [id number] [place] [address] ISREAL KYLEILA Emergency Contact [id number] [place] [address] Insurance Providers: All historical and [...] Li's Name Patient's Relationship to Policy Li [facility], October 28, 2017 [id number] PATIENT Selected Encounter This section includes the information on record at [place] for the Encounter. Date/Time Encounter Type Encounter Description Reason Provider Source Jan 13, 2025 11:00 AM OFFICE O/P EST HI 40 MIN PRIMARY CARE/MEDICINE ICD-10-CM R73.9 Hyperglycemia, unspecified RAIMUNDO JOSE Christina Encounter Template Text not used by [place] Assessments - Encounter Diagnoses This section includes the primary and secondary diagnoses documented for the Encounter. Date/Time Primary/Secondary Diagnosis Diagnosis Name Provider Source Jan 13, 2025 12:03 PM PRIMARY Hyperglycemia, unspecified TORREY LOMBARDI [facility] Jan 13, 2025 12:03 PM SECONDARY Other psoriatic arthropathy RAIMUNDO JOSE [facility] Jan 13, 2025 12:03 PM SECONDARY Psoriasis vulgaris REBECA,ARTIS [facility] Jan 13, 2025 12:03 PM SECONDARY Type 2 diabetes mellitus without complications RAIMUNDO JOSE [facility] Jan 13, 2025 12:03 PM SECONDARY Vitamin D deficiency, unspecified RAIMUNDO JOSE [facility] Plan of Treatment: Future Appointments (+ 6 months) and Future Tests (+/- 45 days) The Plan of Treatment section includes future care activities for the patient from all [place] [facility] This section includes future appointments and future orders which are active, pending or scheduled. Future Appointments This section includes appointments that were scheduled to occur 6 months from the date of the Encounter, up to a maximum of 20 appointments. The data comes from all [facility]. Appointment Date/Time Appointment Type Appointme nt Facility Name Feb 17, 2025 02:00 PM AMBULATORY - MEDICINE [facility] Jun 10, 2025 11:00 AM AMBULATORY MEDICINE [facility] Jun 28, 2025 02:00 PM AMBULATORY - SURGERY [facility] Jul 14, 2025 11:30 AM AMBULATORY - MEDICINE [facility] Active, Pending, and Scheduled Orders This section includes a listing of several types of active, pending, and scheduled orders, including clinic medications orders, diagnostic test orders, procedure orders and consult orders; where the start date of the order is 45 days before the date of the Encounter or 45 days after the date of theEncounter. The data comes from all [facility]. Test Date/Time Test Type Test Details Facility Name Jan 13, 2025 11:44 AM Consult Order DIABETES C ENTER OUTPT STL Cons [facility] Lab Results: +/- 30 days of the encounter This section includes the Chemistry and Hematology Lab Results on record with [place] for the patient. Radiology Reports and Pathology Reports are provided separately, in subsequent sections. Lab Results This section contains the Chemistry/Hematology Results that were resulted 30 days before or 30 daysafter the date of the Encounter. Date/Time Source Result Type Result - Unit Interpretation Reference Range Specimen Type Comment Jan 13, 2025 12:33 PM [facility] MICRAL/CREAT PROFILE (STL) URINE Specimen Typ e: URINE Comment: uALB/CREAT Ratio Unable to be calculated Ordering Provider: RAIMUNDO JOSE Report Released Date/Time: Jan 12, 2025 10:13 AM Reporting Lab: [place] [address] [facility] [address] Performing Lab: [place] [id number] URINE ALBUMIN (PB-STL) 9.8 mg/L uACR (STL) comment mg/g 0-29 CREATININE URINE/OTHERS 357.6 mg/dL H 63-1 66 Jan 13, 2025 12:33 PM [facility] URINALYSIS (STL-PB) URINE Specimen Type: URIN E No comment entered. Ordering Provider: RAIMUNDO JOSE Report Released Date/Time: Jan 12, 2025 10:13 AM Reporting Lab: [address] [phone] Performing Lab: [address] [address] URINE COLOR Yellow Yellow U.BILIRUBIN Negative mg/dL Negative U.PH 5.5 5.0-8.0 URINE WBC/HPF 2 /[HPF] 0-5 URINE RBC/HPF 2 /[HPF] 0-5 APPEARANCE Clear Clear U.NITRITE Negative mg/dL Negative SQUAMOUS EPITH. <1 /[HPF] 0-5 MUCUS OCC /[LPF] Negative-Rare URN.GLUCOSE 200 mg/dL H Negative URN.PROTEIN 20 mg/dL H URN.UROBILINOGEN Normal mg/dL Normal URN.BLOOD Negative mg/dL Negative-Trace URN.KETONES Negative mg/dL Negative-Trac e URN.LEUK.EST. Negative mg/dL Negative-Tr zahraa URN.SPECIFIC GRAVITY 1.035 H Jan 13, 2025 12:09 PM [facility] TESTOSTERONE, FREE PANEL SERUM Specimen Type: SERUM Comment: For additional information, please refer to http://education.AYLIEN/faq/ [email or web address] (This link is being provided for informational/ educational purposes only.) This test was developed and its analytical performance characteristics have been determined by [employer] [place], [place]. It has not been cleared or approved by the U.S. Food and Drug Administration. This assay has been validated pursuant to the CLIA regulations and is used for clinical purposes. Test Performed by [employer] [facility], [employer] [place], [address] [place] [address] Singh Hart M.D., Ph.D., Director of Laboratories , CLIA [id number] Ordering Provider: RAIMUNDO JOSE Report Released Date/Time: Jan 13, 2025 11:44 AM Reporting Lab: [address] [address] Performing Lab: [address] TESTOSTERONE, TOTAL 369 ng/dL 250-1100 ALBUMIN (PB-sendout) 4.5 g/dL 3.6-5.1 TESTOSTERONE,FREE (sendout) 49.0 pg/mL 4 6.0-224.0 TESTOSTERONE,BIOAVAILABLE (MA-PB-SO 100.8 ng/dL L 110.0-575.0 SEX HORMONE BINDING GLOBULIN 32 nmol/L 1 0-50 Jan 13, 2025 12:09 PM [facility] HIV COMBO FOURTH GENERATION (STL) SERUM Speci men Type: SERUM No comment entered. Ordering Provider: RAIMUNDO JOSE Report Released Date/Time: Jan 13, 2025 11:52 AM Reporting Lab: [address] [address] Performing Lab: [address] [address] HIV COMBO FOURTH GENERATION (STL) Nonreactive Nonreactive Jan 13, 2025 12:09 PM [facility] FSH (STL-MA) SERUM Specimen Type: SERUM Comment: Test Performed by [facility] [place], [employer] [facility], [address] [place] [address] Singh Hart M.D., Ph.D., Director of Laboratories , CLIA [id number] Ordering Provider: RAIMUNDO JOSE Report Released Date/Time: Jan 13, 2025 11:44 AM Reporting Lab: [facility] [address] [facility] [address] Performing Lab: [address] FSH (STL-MA) 4.3 m[IU]/mL 1.4-12.8 Jan 13, 2025 12:09 PM [facility] LUTEINIZING HORMONE SERUM Specimen Type: SERU M Comment: Test Performed by [facility], [employer] [facility], [address] [place] [address] Singh Hart M.D., Ph.D., Director of Laboratories , CLIA [id number] Ordering Provider: RAIMUNDO JOSE Report Released Date/Time: Jan 13, 2025 11:44 AM Reporting Lab: [place] [address] [facility] [address] Performing Lab: [address] LUTEINIZING HORMONE 3.3 m[IU]/mL 1.5-9.3 Jan 13, 2025 12:09 PM [facility] TSH (MA-PB) SERUM Specimen Type: SERUM No comment entered. Ordering Provider: RAIMUNDO JOSE Report Released Date/Time: Jan 13, 2025 11:44 AM Reporting Lab: [facility] [address] [facility] [address] Performing Lab: [place] [address] [facility] [address] TSH 0.844 u[IU]/mL 0.47-5 Jan 13, 2025 12:09 PM [facility] PROLACTIN (STL-Eff 04/06) PLASMA Specimen Type : PLASMA No comment entered. Ordering Provider: RAIMUNDO JOSE Report Released Date/Time: Jan 13, 2025 11:44 AM Reporting Lab: [facility] [address] [place] [phone] Performing Lab: [facility] [address] [facility] [address] PROLACTIN (STL-Eff 04/06) 6.68 ng/mL 3.5 -19.4 Jan 13, 2025 12:09 PM [facility] VITAMIN D, 25-HYDROXY SERUM Specimen Type: SE RUM No comment entered. Ordering Provider: RAIMUNDO JOSE Report Released Date/Time: Jan 12, 2025 10:13 AM Reporting Lab: [facility] [address] [place] [phone] Performing Lab: [address] [address] VITAMIN D, 25-HYDROXY 34.3 ng/mL 30-96 Jan 13, 2025 12:09 PM [facility] HGA1C BLOOD Specimen Type: BLOOD No comment entered. Ordering Provider: RAIMUNDO JOSE Report Released Date/Time: Jan 12, 2025 10:13 AM Reporting Lab: [address] [address] Performing Lab: [address] [address] HGA1C 9.6 H 4.0-6.0 Jan 13, 2025 12:09 PM [facility] LIPID PANEL (STL) PLASMA Specimen Type: PLASM A Comment: No hemolysis noted. Ordering Provider: RAIMUNDO JOSE Report Released Date/Time: Jan 12, 2025 10:13 AM Reporting Lab: [facility] [address] [facility] [address] Performing Lab: [address] [address] CHOLESTEROL 146 mg/dL 0-200 TRIGLYCERIDE 237 mg/dL H 0-150 CALCULATED LDL 61 mg/dL HDL(New) 38 mg/dL L >40 Jan 13, 2025 12:09 PM [facility] COMPREHENSIVE METABOLIC PANEL PLASMA Specimen Type: PLASMA Comment: No hemolysis noted. Ordering Provider: RAIMUNDO JOSE Report Released Date/Time: Jan 12, 2025 10:13 AM Reporting Lab: [address] [address] Performing Lab: [address] [address] CREATININE 0.91 mg/dL 0.7-1.3 UREA NITROGEN 13.7 mg/dL 9.0-25.0 GLUCOSE 238 mg/dL H 72-99 SODIUM 136 meq/L 136-145 POTASSIUM 4.0 meq/L 3.5-5 CHLORIDE 105 meq/L 98-107 CARBON DIOXIDE 24 meq/L 22-31 CALCIUM 9.7 mg/dL 8.4-10.4 PROTEIN 8.0 g/dL 6-8.6 ALBUMIN 4.5 g/dL 3.4-5 TOTAL BILIRUBIN 0.6 mg/dL 0.2-1.2 ALKALINE PHOSPHATASE 109 U/L 40-150 AST/SGOT 40 U/L H 5-34 ALT/SGPT 71 U/L H 8-40 EGFR (CKD-EPI 2020) 106.6 >60 Jan 13, 2025 12:09 PM [facility] CBC BLOOD Specimen Type: BLOOD No comment entered. Ordering Provider: RAIMUNDO JOSE Report Released Date/Time: Jan 12, 2025 10:13 AM Reporting Lab: [address] [address] Performing Lab: [address] [address] WBC 10.3 10*3/uL 3.6-11.2 RBC 4.68 10*6/uL 4.10-5.70 HGB 14.6 g/dL 13.1-16.8 HCT 42.7 38.2-48.4 MCV 91.2 fL 80.0-100.0 MCH 31.2 pg 27.0-34.0 MCHC 34.2 g/dL 33.0-36.0 PLT 268 10*3/uL 150-400 MPV 10.8 fL 7.5-11.2 RDW 12.2 11.8-15.1 LYMPHOCYTES, AUTO % 32 MONOCYTES, AUTO % 9 NEUTROPHILS, AUTO % 56 EOSINOPHILS, AUTO % 2 BASOPHILS, AUTO % 1 LYMPHOCYTES, ABSOLUTE 3.32 10*3/uL 0.77- 4.50 MONOCYTES, ABSOLUTE 0.93 10*3/uL H 0.19-0. 80 NEUTROPHILS, ABSOLUTE 5.77 10*3/uL 2.10- 8.00 EOSINOPHILS, ABSOLUTE 0.15 10*3/uL 0.00- 0.60 BASOPHILS, ABSOLUTE 0.08 10*3/uL 0.00-0. 20 Jan 13, 2025 11:18 AM [facility] GLUCOSE,BLOOD-poct (STL) BLOOD Specimen Type: BLOOD Comment: Test Performed by: [id number] Meter #: [id number] Ordering Provider: RAIMUNDO JOSE Report Released Date/Time: Jan 13, 2025 03:24 PM Reporting Lab: [place] [address] [facility] [phone] Performing Lab: [address] [phone] GLUCOSE,BLOOD-poct (STL) 241 mg/dL H 72-99 Vital Signs: All taken on the encounter date This section contains inpatient and outpatient Vital Signs collected on the date of the Encounter. Date/Time Temperature Pulse Blood Pressure Respiratory Rate SP02 Pain Height Weight Body Mass Index Source Jan 13, 2025 11:15 AM 98.6 F 99 /min 132/83 mm[Hg] 18 /min 95 % 0 232.3 lb 34 [facility] Social History: Smoking Status (Most current) and Tobacco Use (All prior to encounter date) This section includes the most current, and the historical, smoking and tobacco- related health factors from the [place] facility where the Encounter took place. Current Smoking Status This section includes the most current smoking, or tobacco-related health factor, from the [place] facility where the Encounter took place. Date/Time Current Smoking Status Comment Facil ity Apr 06, 2024 11:30 AM [place]-TOBACCO USER SOME DAYS [facility] Tobacco Use History This section includes a history of the smoking, or tobacco-related health factors, that were collected on or before the date of the Encounter. The data comes from the [place] facility where the Encounter took place. 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 [facility] Apr 06, 2024 11:30 AM [place]-TOBACCO USE MED NO [facility] Apr 06, 2024 11:30 AM VA-TOBACCO USE WI 30 MIN OF WAKEUP [facility] Apr 06, 2024 11:30 AM [place]-TOBACCO USER SOME DAYS [facility] Mar 22, 2024 05:05 PM ORYX ADMIT TOBACCO SCREEN NO [facility] Mar 05, 2018 01:14 PM CURRENT TOBACCO USER [facility] Mar 05, 2018 01:14 PM CURRENT TOBACCO US ER (READY TO QUIT) [facility] Mar 05, 2018 01:14 PM TOBACCO CESSATION REFERRAL DECLINED [facility] Mar 05, 2018 01:14 PM TOBACCO MEDS OFFER ED BUT DECLINED [facility] Mar 05, 2018 01:14 PM TOBACCO USER OFFERED MEDS [facility] Jul 31, 2016 10:56 AM CURRENT TOBACCO USER [facility] Jul 31, 2016 10:56 AM TOBACCO MEDS OFFER ED BUT DECLINED [facility] Encounter Notes: All associated encounter notes This section contains the clinical notes associated to the Encounter. Date/Time Encounter Note(s) Provider Source Jan 13, 2025 11:23 AM PRIMARY CARE NOTE: LOCAL TITLE: PRIMARY CARE PROVIDER ESTABLISHED VISIT [facility] STANDARD TITLE: PRIMARY CARE NOTE DATE OF NOTE: JAN 13, 2025@11:23 ENTRY DATE: JAN 13, 2025@11:23:56 AUTHOR: RAIMUNDO JOSE EXP COSIGNER: URGENCY: STATUS: COMPLETED CC: routine HPI: 44 year old MALE with a PMHx of diabetes mellitus, psor arthritis, psoriasis, vitamin D deficiency he is on a mAb from rheumatology. last noted a1c in february was quite high at 12.4 he is using insulin. however sugars are frequently in the mid 200s no hyps he is really struggling with gi sys related to metformin, even when using once daily. he wishes to stop it. his energy, sex drive is low. he walks a lot and lifts a lot at the gym for exercise. he recently adjusted his mAb to weekly due to poor control of his psoriasis. ROS: GENERAL--NO FEVER, CHILLS, APPETITE CHANGE REPORTED ENT--NO EPISTAXIS, EAR ACHE, PHARYNGEAL, TINNITUS, MOUTH SORES REPORTED OCULAR-NO ACUTE VISION CHANGES, REDNESS, DISCHARGE, EYE PAIN REPORTED CARDIOVASCULAR--NO CP, PALPITATIONS, EDEMA, CLAUDICATION, ORTHOPNEA, PND REPORTED PULMONARY--NO COUGH, WHEEZES, DYSPNEA, HEMOPTYSIS REPORTED GI--NO NAUSEA, VOMITING, DIARRHEA, CONSTIPATION, MELENA, BLOOD IN STOOLS, GERD OR DYSPHAGIA REPORTED --NO ED, TESTICULAR PAIN OR MASSES, PENILE DISCHARGE, DYSURIA, FREQUENCY, NOCTURIA, HEMATURIA, FREQUENT UTI REPORTED NEUROLOGY--NO HEADACHE, DIZZINESS, ALTERED MENTAL STATE REPORTED PSYCHIATRIC--NO PTSD, DEPRESSION, ANXIETY, INSOMNIA SYMPTOMS REPORTED PMH: 1) Arthritis, Rheumatoid * (ICD-9-CM 714.0) comment: diagnosed in 2004 comment: lower back, hip and down right leg. comment: Had positive HBLA 127 2) Pain in joint involving shoulder region 3) Irritable Colon 4) Family History of Diabetes Mellitus 5) Ankylosing Spondylitis * (ICD-9-CM 720.0) 6) Conjunctivitis * (ICD-9-CM 372.30) 7) Psoriasis (SNOMED CT 8929538) 8) PsA (Psoriatic arthritis) (SNOMED CT [id number]) 9) Psoriasis 10) Elevated levels of transaminase and lactic acid dehydrogenase 11) Adjustment reaction with anxious mood 12) Psoriatic arthritis 13) Vitamin D deficiency 14) Exposure to potentially hazardous substance ([facility] [id number]) comment: Entered automatically through [facility] Problem List documentation prog Active Outpatient Medications (including Supplies): Active Outpatient Medications Status 1) ADALIMUMAB-BWWD 40MG/0.8ML AUTOINJECTOR INJECT 40MG/0.8ML ACTIVE UNDER THE SKIN EVERY WEEK Indication: FOR PSORIATIC ARTHRITIS 2) ALCOHOL PREP PAD USE/APPLY PAD TO AFFECTED AREA(S) ONCE A ACTIVE DAY NEEDED Indication: FOR SKIN CLEANSING 3) BUPROPION HCL 150MG 24HR SA TAB TAKE ONE TABLET BY MOUTH ACTIVE ONCE A DAY SWALLOW WHOLE - DO NOT CRUSH OR CHEW. Indication: FOR DEPRESSION 4) CARBOXYMETHYLCELLULOSE NA 0.5% OPH SOLN INSTILL 1 DROP IN ACTIVE BOTH EYES FOUR TIMES A DAY NEEDED Indication: FOR DRY EYE(S) 5) INSULIN,GLARGINE 100 UNT/ML 3ML SOLOSTAR INJECT 46 UNITS ACTIVE UNDER THE SKIN AT BEDTIME ADMINISTER AT SAME TIME EACH DAY DIRECTED. DISCARD ANY OPEN CARTRIDGE AFTER 28 DAYS. Indication: DIABETES MELLITUS 6) TRIAMCINOLONE ACETONIDE 0.1% CREAM APPLY LIGHTLY TO AFFECTED ACTIVE AREA(S) TWICE A DAY (EXTERNAL USE ONLY) Indication: FOR PSORIASIS Patient has answered NKA FH: marlyn patel. 2009 mi, diabetes. mom alive. SH: rare etoh, no tob, does vape Physical Exam: VSD - Detailed Vitals Date Vital Measurement Qualifiers 01/13/2025 11:15 Temp F (C) 98.6 (37.0) Pulse 99 Respir 18 BP 132/83 Wt lbs (kg)[BMI] 232.3 (105.37)[34*] Pain 0 POx (L/Min)(%) 95 12/10/2024 11:10 Ht in (cm) 69 (175.26) PE: NC/AT ALERT, NAD EYE--PUPILS EQUAL, ROUND, EOMI, ANICTERIC ENT - OROPHARYNX, NASOPHARYNX GROSSLY CLEAR. TM AND CANALS GROSSLY NL IN APPPEARANCE. EXTERNAL EAR, NOSE, MOUTH NORMAL IN APPEARANCE NECK-NO MASSES, CERVICAL ADENOPATHY, GROSSLY NORMAL WILI, TRACHEA MIDLINE CARDIAC--RRR, NO MURMUR HEARD, NL RADIAL PULSE LUNG-CTA BILATERAL, NO WHEEZES OR RHONCHI HEARD, GOOD RESPIRATORY EFFORT. ABDOMEN-SOFT, NT, NO ORGANOMEGALY. EXT--NO EDEMA NOTED, WD/WN CAROTID NO BRUIT HEARD DERM--extensive scaling placques on knees, elbows Labs: WBC 9.8 10*3/uL 12/10/2024 11:50 RBC 4.65 [...] 11:50 BASOPHILS, ABSOLUTE 0.08 10*3/uL 12/10/2024 11:50 BMP PC STL No data available for: CREATININE UREA NITROGEN GLUCOSE SODIUM POTASSIUM CHLORIDE CARBON DIOXIDE CALCIUM EGFR (DISCONTINUED 09/27/21) TRIGLYCERIDE 312 H mg/dL 03/23/2024 08:03 CHOLESTEROL 175 mg/dL 03/23/2024 08:03 HDL(New) 32 L mg/dL 03/23/2024 08:03 CALCULATED LDL comment mg/dL 03/23/2024 08:03 SLT - Lab Tests Selected Collection DT Specimen Test Name Result Units Ref Range 03/22/2024 10:01 BLOOD HGA1C 12.8 H % 4.0 - 6.0 07/26/2021 14:52 BLOOD HGA1C 6.2 H % 4.0 - 6.0 05/04/2015 14:15 BLOOD HGA1C 5.4 % 4.0 - 6.0 No data available No PSA EO data found Imaging: No data available No data available for: LDCT LCS 1, 3 OR 6 MONTH FOLLOW UP ZZLDCT LUNG CANCER SCREENING LDCT LUNG CANCER SCREENING Assessment and Plan: psoriatic arthritis dm low energy/libido chronic vit d defic --check labs, including testosterone and hormone studies advised if testosterone low, would need repeat am level refer to diabetes ctr increase insulin to 50 units per day add jardiance 12.5 mg stop metformin dw him addition of statin after labs return. follow w rheumatology I spent 54 minutes on some or all of the following: chart review, history, physical examination, treatment planning, education, and counseling of the patients/family/caregiver, placing orders, communicating with other health care providers, and documentation in the electronic health record. PLAN OF CARE HAS BEEN DISCUSSED WITH THE including expected therapeutic benefits and potential side effects of prescribed medication and treatments. verbalizes understanding and is in agreement with the plan of care. Patient was instructed to keep all scheduled appointments and contact heel sprayer first for any additional problems. MEDICATION RECONCILIATION I have reviewed the patient's medication list (including active outpatient prescriptions dispensed from this [facility] (local) and dispensed from another [place] or [facility] facility (remote) as well as inpatient orders (local pending and active), local clinic medications, locally documented non-VA medicationsand local prescriptions that have or been discontinued in the past 90 days.) with the patient and/or his/her care-wireless operator. Handwritten corrections, additions and/or deletions were made to the list, as appropriate. Corrected Outpatient Medication List was provided to the patient/caregiver. HIV Screening (Routine): Patient has given verbal consent for HIV antibody testing, and written educational materials have been provided. An order for an HIV Antibody test has been entered - see orders tab. PAVE Foot Check - L,N,P,PH,PO,PT,U: A complete foot check was completed at this encounter. VISUAL INSPECTION: Includes inspection for skin breaks, deformity, erythema, trauma, pallor on elevation, dependent rubor, nail deformities, extensive callus and pitting edema. Visual exam results: Normal PEDAL PULSES: Includes palpation of dorsalis and posterior tibial pulses and signs/symptoms of vascular compromise like pain, pallor, paresthesia or paralysis. Present (even if diminished) SENSORY CHECK: Includes 10 gram Monofilament (Stacy-Sanan) test of sensation. Intact (Greater than or equal to 80% of sites checked) Abnormal (Less than 80% of sites checked): Intact LOW-RISK: LOW RISK INFORMATION PROVIDED: 1. Advised patient not to walk barefoot. 2. Explained the importance of daily foot checks for changes. 3. Stressed the importance of daily foot hygiene, including bathing and complete drying. /es/ RAIMUNDO JOSE MD, MD Signed: 01/13/2025 12:04 RAIMUNDO JOSE [facility] Jan 13, 2025 11:16 AM NURSING NOTE: LOCAL TITLE: V15 PACT FACE TO FACE NOTE STL STANDARD TITLE: NURSING NOTE DATE OF NOTE: JAN 13, 2025@11:16 ENTRY DATE: JAN 13, 2025@11:16:28 AUTHOR: TORREY LOMBARDI COSIGNER: URGENCY: STATUS: COMPLETED Provider Visit: Patient Identifiers : Full Name Date of Reason for visit: Established Follow-Up Routine follow up. No new complaints voiced. Mode of Arrival: Ambulatory Allergy Review: ALLERGIES/ADVERSE REACTIONS - NONE FOUND Allergy list reviewed and remains current. Recent Vital Signs: Temperature: 98.6 F [37.0 C] (01/13/2025 11:15) Pulse: 99 (01/13/2025 11:15) Respiration: 18 (01/13/2025 11:15) B/P: 132/83 (01/13/2025 11:15) Pain: 0 (01/13/2025 11:15) Wt: 232.3 lb [105.37 kg] (01/13/2025 11:15) Ht: 69 in [175.3 cm] (12/10/2024 11:10) BMI: 34.4 POX: 95% (01/13/2025 11:15) Blood sugar glucometer readin PERSONAL HEALTH INVENTORY Notes: No data available for PHI note titles PERSONAL HEALTH INVENTORY - MAP: 07/08/2024 Personal Health Plan [place], [place], [place] (MAP) Gym and friends What matters most to you in your life right now? [place] Response: Motorcycles Would you like to discuss any personal problem, family problem, alcohol use, drug use, or a mental or emotional illness? No Contact provided Primary Care phone number and encouraged to call if any questions or concerns. Review that after hours nurse line ext.[phone] and emergency room are available 20/01 for patient use. Contact verbalized good understanding. Sexual Orientation - CP,L,N,P,PH,PS,S,U: The patient thinks of their sexual orientation as: Straight or Heterosexual Herpes Zoster (Shingles) Vaccine - L,N,P,PH,U: The patient declines to receive the recommended dose of zoster (shingles) vaccine. Immunization: ZOSTER RECOMBINANT Refusal Reason: PATIENT DECISION Patient refuses all immunization(s) in the ZOSTER group Date Documented: 01/13/25 11:22 /freddy/ TORREY LOMBARDI LICENSED PRACTICAL NURSE Signed: 01/13/2025 11:22 TORREY LOMBARDI [facility]
--- OUTSIDE RECORDS SUMMARY | 2025-01-20 10:28 | XMS_ITS | Clinical Summary ---
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 Gender Identity Not on file Sexual Orientation Not on file Obstetrics History Last Filed Vital Signs Vital Sign Reading Time Taken Comments Blood Pressure 116/74 06/16/2024 3:45 PM KENO CLERK Pulse 83 06/16/2024 3:45 PM KENO CLERK Temperature 37 C (98.6 F) 06/16/2024 12:51 PM KENO CLERK Respiratory Rate 18 06/16/2024 3:45 PM KENO CLERK Oxygen Saturation 96% 06/16/2024 3:45 PM KENO CLERK Inhaled Oxygen Concentration - - Weight 106.6 kg (235 lb 0.2 oz) 024 12:51 PM KENO CLERK Height 175.3 cm (5' 9) 06/16/2024 12:5 1 PM KENO CLERK Body Mass Index 34.71 06/16/2024 12:51 PM KENO CLERK Plan of Treatment Health Maintenance Due Date [...] patient's age to complete this topic Insurance [facility] Care Teams Facer Operator Relationship Specialty Start Date End Date [facility], Randall Valverde [address] [place] [address] PCP - General Genetics 06/16/24
--- OUTSIDE RECORDS SUMMARY | 2025-01-20 10:28 | XMS_ITS ---
Author Name [facility] [place] Address [address] [place] [address] Support Name Relationship Address Phone FIONA KYLE Next of Kin [address] [place] [address] FIONA KYLE Emergency Contact [address] [place] [address] Insurance Providers: All historical and [...] Li's Name Patient's Relationship to Policy Li [facility], October 28, 2017 [id number] TAE CHAKRABORTY PATIENT Selected Encounter This section includes the information on record at [place] for the Encounter. Date/Time Encounter Type Encounter Description Reason Pro vider Source Dec 23, 2024 01:31 AM Outpatient Encounter ADMIN PAT ACTIVTIES (MASNONCT) IHE Encounter Template Text not used by [...] 13, 2025 11:00 AM AMBULATORY - MEDICINE [facility] Feb 17, 2025 02:00 PM AMBULATORY - MEDICINE [facility] Jun 10, 2025 11:00 AM AMBULATORY - MEDICINE [facility] Active, Pending, and Scheduled Orders [...] Order DIABETES C ENTER OUTPT STL Cons Stenographic Court Reporter's Choice [facility] Lab Results: +/- 30 days of the encounter This section includes the Chemistry and Hematology Lab Results on record with [place] for the patient. Radiology Reports and Pathology Reports are provided separately, in subsequent sections. Lab Results This section contains the Chemistry/Hematology Results that were resulted 30 days before or 30 daysafter the date of the Encounter. Date/Time Source Result Type Result - Unit Interpretation Reference Range Specimen Type Comment Jan 13, 2025 12:33 PM [facility] MICRAL/CREAT PROFILE (STL) URINE Specimen Typ e: URINE Comment: uALB/CREAT Ratio Unable to be calculated Ordering Provider: RAIMUNDO JOSE Report Released Date/Time: Jan 12, 2025 10:13 AM Reporting Lab: [place] [address] [facility] [address] Performing Lab: [address] [address] URINE ALBUMIN (PB-STL) 9.8 mg/L uACR (STL) comment mg/g 0-29 CREATININE URINE/OTHERS 357.6 mg/dL H 63-1 66 Jan 13, 2025 12:33 PM [facility] URINALYSIS (STL-PB) URINE Specimen Type: URIN E No comment entered. Ordering Provider: RAIMUNDO JOSE Report Released Date/Time: Jan 12, 2025 10:13 AM Reporting Lab: [place] [address] [facility] [address] Performing Lab: [address] [address] URINE COLOR Yellow Yellow U.BILIRUBIN Negative mg/dL [...] 1.035 H Jan 13, 2025 12:09 PM [facility] TESTOSTERONE, FREE PANEL SERUM Specimen Type: SERUM Comment: For additional information, please refer to http://education.[employer]/faq/ PwtqkCfpswllutwumOFQXICQRA408 (This link is being provided for informational/ educational purposes only.) This test was developed and its analytical performance characteristics have been determined by [facility] [place], [place]. It has not been cleared or approved by the U.S. Food and Drug Administration. This assay has been validated pursuant to the CLIA regulations and is used for clinical purposes. Test Performed by [facility], [facility], [address] [place], [place] Singh Hart M.D., Ph.D., Director of Laboratories , CLIA [id number] Ordering Provider: RAIMUNDO JOSE Report Released Date/Time: Jan 13, 2025 11:44 AM Reporting Lab: [address] [address] Performing Lab: [facility] [id number] [place] [address] TESTOSTERONE, TOTAL 369 ng/dL 250-1100 ALBUMIN (PB-sendout) 4.5 g/dL 3.6-5.1 TESTOSTERONE,FREE (sendout) 49.0 pg/mL 4 6.0-224.0 TESTOSTERONE,BIOAVAILABLE (MA-PB-SO 100.8 ng/dL L 110.0-575.0 SEX HORMONE BINDING GLOBULIN 32 nmol/L 1 0-50 Jan 13, 2025 12:09 PM [facility] HIV COMBO FOURTH GENERATION (STL) SERUM Speci men Type: SERUM No comment entered. Ordering Provider: RAIMUNDO JOSE Report Released Date/Time: Jan 13, 2025 11:52 AM Reporting Lab: [place] [address] Performing Lab: [place] [address] HIV COMBO FOURTH GENERATION (STL) Nonreactive Nonreactive Jan 13, 2025 12:09 PM [facility] FSH (STL-MA) SERUM Specimen Type: SERUM Comment: Test Performed by [facility], [facility], [address] [place] [address] Singh Hart M.D., Ph.D., Director of Laboratories , CLIA [id number] Ordering Provider: RAIMUNDO JOSE Report Released Date/Time: Jan 13, 2025 11:44 AM Reporting Lab: [address] [address] Performing Lab: [address] FSH (STL-MA) 4.3 m[IU]/mL 1.4-12.8 Jan 13, 2025 12:09 PM [facility] LUTEINIZING HORMONE SERUM Specimen Type: SERU M Comment: Test Performed by [employer] [facility] [place], [facility] [place], [address] [place] [address] Singh Hart M.D., Ph.D., Director of Laboratories , CLIA [id number] Ordering Provider: RAIMUNDO JOSE Report Released Date/Time: Jan 13, 2025 11:44 AM Reporting Lab: [facility] [address] [facility] [address] Performing Lab: [facility] [address] [facility] LUTEINIZING HORMONE 3.3 m[IU]/mL 1.5-9.3 Jan 13, 2025 12:09 PM [facility] TSH (MA-PB) SERUM Specimen Type: SERUM No comment entered. Ordering Provider: RAIMUNDO JOSE Report Released Date/Time: Jan 13, 2025 11:44 AM Reporting Lab: [address] [address] Performing Lab: [address] [address] TSH 0.844 u[IU]/mL 0.47-5 Jan 13, 2025 12:09 PM [facility] PROLACTIN (STL-Eff 04/06) PLASMA Specimen Type : PLASMA No comment entered. Ordering Provider: RAIMUNDO JOSE Report Released Date/Time: Jan 13, 2025 11:44 AM Reporting Lab: [facility] [address] [place] [address] Performing Lab: [address] [address] PROLACTIN (STL-Eff 04/06) 6.68 ng/mL 3.5 -19.4 Jan 13, 2025 12:09 PM [facility] VITAMIN D, 25-HYDROXY SERUM Specimen Type: SE RUM No comment entered. Ordering Provider: RAIMUNDO JOSE Report Released Date/Time: Jan 12, 2025 10:13 AM Reporting Lab: [address] [address] Performing Lab: [address] [address] VITAMIN D, 25-HYDROXY 34.3 ng/mL 30-96 Jan 13, 2025 12:09 PM [facility] HGA1C BLOOD Specimen Type: BLOOD No comment entered. Ordering Provider: RAIMUNDO JOSE Report Released Date/Time: Jan 12, 2025 10:13 AM Reporting Lab: [address] [address] Performing Lab: [address] [address] HGA1C 9.6 H 4.0-6.0 Jan 13, 2025 12:09 PM [facility] LIPID PANEL (STL) PLASMA Specimen Type: PLASM A Comment: No hemolysis noted. Ordering Provider: RAIMUNDO JOSE Report Released Date/Time: Jan 12, 2025 10:13 AM Reporting Lab: [address] [address] Performing Lab: [address] [address] CHOLESTEROL 146 mg/dL 0-200 TRIGLYCERIDE 237 mg/dL H 0-150 CALCULATED LDL 61 mg/dL HDL(New) 38 mg/dL L >40 Jan 13, 2025 12:09 PM [facility] COMPREHENSIVE METABOLIC PANEL PLASMA Specimen Type: PLASMA Comment: No hemolysis noted. Ordering Provider: RAIMUNDO JOSE Report Released Date/Time: Jan 12, 2025 10:13 AM Reporting Lab: [address] [address] Performing Lab: [address] [address] CREATININE 0.91 mg/dL 0.7-1.3 UREA NITROGEN 13.7 [...] 106.6 >60 Jan 13, 2025 12:09 PM [facility] CBC BLOOD Specimen Type: BLOOD No comment entered. Ordering Provider: RAIMUNDO JOSE Report Released Date/Time: Jan 12, 2025 10:13 AM Reporting Lab: [address] [address] Performing Lab: [address] [address] WBC 10.3 10*3/uL 3.6-11.2 RBC 4.68 10*6/uL [...] 0.00-0. 20 Jan 13, 2025 11:18 AM [facility] GLUCOSE,BLOOD-poct (STL) BLOOD Specimen Type: BLOOD Comment: Test Performed by: [id number] Meter #: [id number] Ordering Provider: RAIMUNDO JOSE Report Released Date/Time: Jan 13, 2025 03:24 PM Reporting Lab: [address] [address] Performing Lab: [address] [address] GLUCOSE,BLOOD-poct (STL) 241 mg/dL H 72-99 Dec 10, 2024 11:49 AM [facility] QUANTIFERON-TB,4 TUBE BLOOD Specimen Type: BL OOD Comment: Negative test result. M. tuberculosis complex [...] Antigen tube is coated with the M. tuberculosis-specific antigens designed to elicit responses from TB antigen primed CD4+ helper T-lymphocytes. The TB2 Antigen tube is coated with the M. tuberculosis-specific antigens designed to elicit responses from TB antigen primed CD4+ helper and CD8+ cytotoxic T-lymphocytes. For additional information, please refer to http://education.[employer]/faq/NBC465 (This link is being provided for information/ educational purposes only.) Test Performed by [employer], [facility], [address] [place] [address] Singh Hart M.D., Ph.D., Director of Laboratories , [place] [id number] Ordering Provider: LUKASZ LIU Report Released Date/Time: Dec 10, 2024 11:37 AM Reporting Lab: [facility] [address] [facility] [address] Performing Lab: [facility] [address] [place] [address] .NIL - QUANTIFERON 0.01 [IU]/mL .MITOGEN-NIL 9.72 [IU]/mL .QUANTIFERON NEGATIVE NEGATIVE .TB1-NIL 0.01 [IU]/mL .TB2-NIL 0.01 [IU]/mL Dec 10, 2024 11:[address] [facility] CRP PLASMA Specimen Type: PLASM A Comment: No hemolysis noted. Ordering Provider: LUKASZ LIU Report Released Date/Time: Dec 10, 2024 11:37 AM Reporting Lab: [address] [address] Performing Lab: [address] [address] CRP 0.5 mg/dL 0-0.5 Dec 10, 2024 11:49 AM [facility] ESR ISED(STL) BLOOD Specimen Type: BLOOD No comment entered. Ordering Provider: LUKASZ LIU Report Released Date/Time: Dec 10, 2024 11:37 AM Reporting Lab: [address] [address] Performing Lab: [address] [address] ESR ISED(STL) 17 mm/h H 0-14 Dec 10, 2024 11:49 AM [facility] CBC BLOOD Specimen Type: BLOOD No comment entered. Ordering Provider: LUKASZ LIU Report Released Date/Time: Dec 10, 2024 11:37 AM Reporting Lab: [address] [address] Performing Lab: [address] [address] WBC 9.8 10*3/uL 3.6-11.2 RBC 4.65 10*6/uL [...] 0.60 BASOPHILS, ABSOLUTE 0.08 10*3/uL 0.00-0. 20 Dec 10, 2024 11:49 AM [facility] COMPREHENSIVE METABOLIC PANEL PLASMA Specimen Type: PLASMA Comment: No hemolysis noted. Ordering Provider: LUKASZ LIU Report Released Date/Time: Dec 10, 2024 11:37 AM Reporting Lab: [facility] [address] [facility] [address] Performing Lab: [facility] [address] [facility] [address] CREATININE 0.87 mg/dL 0.7-1.3 UREA NITROGEN 14.5 [...] H 8-40 EGFR (CKD-EPI 2020) 109.1 >60 Encounter Notes: All associated encounter notes This section contains the clinical notes associated to the Encounter. Date/Time Encounter Note(s) Provider Source Dec 23, 2024 01:31 AM PHARMACY PROGRESS NOTE: LOCAL TITLE: PHARMACY GENERAL ST STANDARD TITLE: PHARMACY PROGRESS NOTE DATE OF NOTE: DEC 23, 2024@01:31 ENTRY DATE: DEC 23, 2024@01:31:35 AUTHOR: IZA ESCUDERO EXP COSIGNER: URGENCY: STATUS: COMPLETED [place] contacted pharmacy via secure messaging and is requesting that the following prescription be renewed.Please renew prescription to fill, if deemed appropriate. MEDICATION RENEWAL REQUESTED FOR: BUPROPION HCL 24HR TAB,SA (EXTENDED RELEASE) 150MG TAKE ONE TABLET BY MOUTH ONCE A DAY FOR DEPRESSION SWALLOW WHOLE - DO NOT CRUSH OR CHEW. 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
--- OUTSIDE RECORDS SUMMARY | 2025-01-20 10:28 | XMS_ITS | Referral Summary ---
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 Gender Identity Not on file Sexual Orientation Not on file Last Filed Vital Signs Vital Sign Reading Time Taken Comments Blood Pressure 116/74 06/16/2024 3:45 PM POSTING MACHINE OPERATOR Pulse 83 06/16/2024 3:45 PM POSTING MACHINE OPERATOR Temperature 37 C (98.6 F) 06/16/2024 12:51 PM POSTING MACHINE OPERATOR Respiratory Rate 18 06/16/2024 3:45 PM POSTING MACHINE OPERATOR Oxygen Saturation 96% 06/16/2024 3:45 PM POSTING MACHINE OPERATOR Inhaled Oxygen Concentration - - Weight 106.6 kg (235 lb 0.2 oz) 024 12:51 PM POSTING MACHINE OPERATOR Height 175.3 cm (5' 9) 06/16/2024 12:5 1 PM POSTING MACHINE OPERATOR Body Mass Index 34.71 06/16/2024 12:51 PM POSTING MACHINE OPERATOR Plan of Treatment Not on file [place] Care Teams Hull Grinder Relationship Specialty Start Date End Date [facility], Randall Valverde [address] [place] [address] PCP - General Genetics 06/16/24
[2025-01-20 10:56] LABS: Add Urine Microscopic? NO; Appearance Urine Clear (Clear); Glucose Urine UA 3+ mg/dL (Negative); Leukocyte Esterase Ur Negative LEU/UL (Negative); Nitrate Urine Negative (Negative); Specific Grav Ur 1.035 (1.001-1.035)
[2025-01-20 11:29] VITALS: BP 123/82; PULSE 74; RESP 18; O2SAT 97
== END 2025-01-20 12:12 | disposition home or self-care (01) ==
PROVIDERS: Emergency Provider Physician Assistant
DX: E11.65 Type 2 diabetes mellitus with hyperglycemia (principal); Z79.4 Long term (current) use of insulin
CPT/HCPCS: 36415; 80053; 81003; 82010; 82948; 83735; 84100; 85025; 96360; 99283; J7030